=== PATIENT | female | born 1940 | race Caucasian/White ===

== ENCOUNTER 2017-05-15 18:36 | Emergency (ER) | payer MEDICARE, BC ==
[2017-05-15] MEDS ORDERED: Sodium Chloride 0.9% 1,000 ML IV ONE (18:37)
[2017-05-15 18:39] VITALS: BP 98/62
[2017-05-15] MEDS ORDERED: Nitroglycerin 0.4 MG Tab.SL ONE ×2 (18:44→19:19)
[2017-05-15] MEDS ORDERED: Amiodarone/Dextrose,Iso-Osmotic 150 MG/100 ML Premix Bag IV ONE (18:44)
[2017-05-15] MEDS ORDERED: Ketamine 500 mg/10 ML MDV ONE (18:44)
[2017-05-15] MEDS ORDERED: Amiodarone 150 MG/3 ML SDV ONE (18:44)
[2017-05-15] MEDS ORDERED: Sodium Chloride 0.9% 10 ML Syringe FLUSH PRN (18:53)
[2017-05-15 19:11] LABS: CHLORIDE,CL 102 mmol/L (98-107); SODIUM,NA 141 mmol/L (136-145)
--- NOTE | 2017-05-15 20:24 | EDM.PDOC ---
ED HPI GENERAL MEDICAL PROBLEM - General Chief Complaint: Chest Pain Stated Complaint: CHEST PAIN Time Seen by Provider: 05/15/17 18:53 Source of Information: Reports: Patient, Family History Limitations: Reports: No Limitations - History of Present Illness INITIAL COMMENTS - FREE TEXT/NARRATIVE: Patient brought in by family for complaint of central/left sided chest pain with radiation down left arm. Placed on monitor which showed VTach with rate averaging 180. Patient conversive, alert. Mild sensation SOB. Mild diaphoresis. Denied nausea. Positive history for CAD and previous ND. Was told by Cardiology in past that she is not candidate for any invasive procedures at this time. She did take three NTG at home prior to coming and noted no difference in the pain. Pain present for approximately 4 hours prior to arrival in ER. Admitted to suddenly running out of her med over the weekend and has yet not refilled them. Has not taken most of them since Saturday, two days ago. Denies any other acute recent changes in health. - Related Data Allergies Allergy/AdvReac Type Severity Reaction Status Date / Time nitrofurantoin Allergy Headache Verified 05/15/17 19:26 [From Macrobid] Home Meds: Home Meds Aspirin [Ecotrin] 325 mg PO DAILY 10/20/14 [History] Diltiazem [Cardizem CD] 180 mg PO DAILY 10/20/14 [History] Fosinopril [Monopril] 30 mg PO DAILY 10/20/14 [History] Insulin Glarg,Human.Rec.Analog [Lantus] 17 unit SUBCUT DAILY 10/20/14 [History] Nitroglycerin [Nitrostat] 0.4 mg SL Q5M 10/20/14 [History] Sertraline [Zoloft] 150 mg PO DAILY 10/20/14 [History] Cyclobenzaprine [Flexeril] 10 mg PO Q8HR PRN 10/31/14 [History] hydrOXYzine Pamoate [Vistaril] 50 mg PO Q4HR PRN 10/31/14 [History] Gabapentin [Neurontin] 300 mg PO BEDTIME 11/01/14 [History] Acetaminophen/HYDROcodone [Poulan 325-5 MG] 1 tab PO Q4H PRN #30 tablet 11/12/14 [Rx] Amoxicillin/Clavulanate K [Augmentin 875 MG/125 MG] 1 tab PO Q12HR #8 tablet [Rx] Amoxicillin/Potassium Clav [Augmentin 875-125 Tablet] 1 each PO BID #6 tablet [Rx] Diclofenac Sodium [Voltaren] 50 mg PO DAILY 07/23/15 [History] Insulin Aspart [Novolog] 7 unit SQ TIDMEALS 07/23/15 [History] predniSONE [Prednisone] 10 mg PO ASDIRECTED #20 tablet 07/23/15 [Rx] Past Medical History Cardiovascular History: Reports: CAD, Hypertension, ND, Stents Respiratory History: Reports: COPD Neurological History: Reports: CVA Psychiatric History: Reports: Depression Endocrine/Metabolic History: Reports: IDDM, Obesity/BMI 30+ - Infectious Disease History Infectious Disease History: Reports: Chicken Pox, Measles, Mumps Social & Family History - Tobacco Use Smoking Status *Q: Current Every Day Smoker Years of Tobacco use: 60 Packs/Tins Daily: 0.2 Used Tobacco, but Quit: No Second Hand Smoke Exposure: No - Alcohol Use Days Per Week of Alcohol Use: 0 - Recreational Drug Use Recreational Drug Use: No ED ROS GENERAL - Review of Systems Review Of Systems: See Below Constitutional: Reports: No Symptoms HEENT: Reports: Glasses Respiratory: Reports: Shortness of Breath. Denies: Wheezing, Pleuritic Chest Pain, Cough, Sputum, Hemoptysis Cardiovascular: Reports: Chest Pain, Dyspnea on Exertion, Lightheadedness, Palpitations. Denies: Edema, Orthopnea, Syncope GI/Abdominal: Reports: No Symptoms : Reports: No Symptoms Musculoskeletal: Reports: No Symptoms Skin: Reports: No Symptoms Neurological: Denies: Confusion, Headache, Numbness, Paresthesia, Change in Speech, Gait Disturbance Psychiatric: Reports: No Symptoms Hematologic/Lymphatic: Reports: No Symptoms Immunologic: Reports: No Symptoms ED EXAM, GENERAL - Physical Exam Exam: See Below Exam Limited By: No Limitations General Appearance: Alert, WD/WN, Mild Distress Eye Exam: Bilateral Eye: EOMI, Normal Inspection, PERRL Ears: Normal External Exam, Normal Canal Nose: Normal Inspection Throat/Mouth: Normal Inspection, Normal Lips, Normal Oropharynx, Normal Voice, No Airway Compromise Head: Atraumatic, Normocephalic Neck: Normal Inspection, Supple, Non-Tender, Full Range of Motion Respiratory/Chest: No Respiratory Distress, Lungs Clear, Normal Breath Sounds, No Accessory Muscle Use, Chest Non-Tender Cardiovascular: No Murmur, Tachycardia Peripheral Pulses: 2+: Radial (L), Radial (R), Dorsalis Pedis (L), Dorsalis Pedis (R) GI/Abdominal: Normal Bowel Sounds, Soft, Non-Tender, No Distention (Female) Exam: Deferred Rectal (Female) Exam: Deferred Back Exam: Normal Inspection Extremities: Non-Tender, Other (slightly delayed cap refill) Neurological: Alert, Oriented, Normal Cognition, No Motor/Sensory Deficits Psychiatric: Normal Affect, Normal Mood Skin Exam: Warm, Diaphoretic (mild), Pallor (mild) EKG INTERPRETATION EKG Date: 05/15/17 Time: 18:26 Rhythm: Other (V-tach) Rate (Beats/Min): 181 [place]: LAD-Left [place] Deviation P-Wave: Absent QRS: Wide Comparison: Change From Previous EKG Course - Vital Signs Last Recorded V/S: Last Vital Signs Temp Pulse 182 H 05/15/17 18:38 Resp 30 H 05/15/17 18:38 BP 98/62 05/15/17 18:38 Pulse Ox 94 L 05/15/17 18:38 - Orders/Labs/Meds Orders: Active Orders 24 hr Category Date Time Status EKG Documentation Completion [RC] ASDIRECTED Care 05/15/17 18:54 Active Chest 1V Frontal [CR] Stat Exams 05/15/17 18:54 Taken Sodium Chloride 0.9% [Saline Flush] Med 05/15/17 18:53 Active 10 ml FLUSH ASDIRECTED PRN Saline Lock Insert [OM.PC] Stat Oth 05/15/17 18:54 Ordered Medication Orders Sodium Chloride (Saline Flush) 10 ml FLUSH ASDIRECTED PRN PRN Reason: Keep Vein Open Labs: Laboratory Tests 05/15/17 05/15/17 05/15/17 Range/Units 18:40 18:40 18:40 WBC 15.9 H (4.0-10.2) K/uL RBC 4.61 (3.77-5.09) M/uL Hgb 14.1 (11.7-15.5) g/dL Hct 43.3 (34.0-46.0) % MCV 93.9 (84.0-98.0) fL MCH 30.6 (28.2-33.3) pg MCHC 32.6 (31.7-36.0) g/dL RDW 14.6 H (11.2-14.1) % Plt Count 268 (150-350) K/uL Neut % (Auto) 86.8 H (45.0-80.0) % Lymph % (Auto) 8.5 L (10.0-50.0) % [place] % (Auto) 4.3 (2.0-14.0) % Eos % (Auto) 0.2 (0.0-5.0) % Baso % (Auto) 0.2 (0.0-2.0) % Neut # (Auto) 13.84 H (1.40-7.00) K/uL Lymph # (Auto) 1.35 (0.50-3.50) K/uL [place] # (Auto) 0.69 (0.00-1.00) K/uL Eos # (Auto) 0.03 (0.00-0.50) K/uL Baso # (Auto) 0.03 (0.00-0.20) K/uL PT 10.8 (9.8-11.7) SEC INR 1.0 D-Dimer, Quantitative (0-400) ng/mL Sodium 141 (136-145) mmol/L Potassium 3.9 (3.5-5.1) mmol/L Chloride 102 (98-107) mmol/L Carbon Dioxide 23.4 (21.0-32.0) mmol/L BUN 14 (7-18) mg/dL Creatinine 1.45 H (0.51-1.17) mg/dL Est Cr Clr Drug Dosing TNP Estimated GFR (MDRD) 35 mL/min Glucose 299 H* (74-106) mg/dL Calcium 9.9 (8.5-10.1) mg/dL Magnesium 1.9 (1.8-2.4) mg/dL Total Bilirubin 0.6 (0.2-1.0) mg/dL AST 38 H (15-37) U/L ALT 18 (12-78) U/L Alkaline Phosphatase 102 (46-116) IU/L Creatine Kinase 185 (26-308) U/L Creatine Kinase Index 4.2 H (0.0-2.5) % CK-MB (CK-2) 7.80 H* (0.00-3.60) ng/mL Troponin I 0.440 H* (0.000-0.056) ng/mL NT-Pro-B Natriuret Pep 1454 H (0-125) pg/mL Total Protein 7.8 (6.4-8.2) g/dL Albumin 3.5 (3.4-5.0) g/dL 05/15/17 Range/Units 18:40 WBC (4.0-10.2) K/uL RBC (3.77-5.09) M/uL Hgb (11.7-15.5) g/dL Hct (34.0-46.0) % MCV (84.0-98.0) fL MCH (28.2-33.3) pg MCHC (31.7-36.0) g/dL RDW (11.2-14.1) % Plt Count (150-350) K/uL Neut % (Auto) (45.0-80.0) % Lymph % (Auto) (10.0-50.0) % [place] % (Auto) (2.0-14.0) % Eos % (Auto) (0.0-5.0) % Baso % (Auto) (0.0-2.0) % Neut # (Auto) (1.40-7.00) K/uL Lymph # (Auto) (0.50-3.50) K/uL [place] # (Auto) (0.00-1.00) K/uL Eos # (Auto) (0.00-0.50) K/uL Baso # (Auto) (0.00-0.20) K/uL PT (9.8-11.7) SEC INR D-Dimer, Quantitative 648 H (0-400) ng/mL Sodium (136-145) mmol/L Potassium (3.5-5.1) mmol/L Chloride (98-107) mmol/L Carbon Dioxide (21.0-32.0) mmol/L BUN (7-18) mg/dL Creatinine (0.51-1.17) mg/dL Est Cr Clr Drug Dosing Estimated GFR (MDRD) mL/min Glucose (74-106) mg/dL Calcium (8.5-10.1) mg/dL Magnesium (1.8-2.4) mg/dL Total Bilirubin (0.2-1.0) mg/dL AST (15-37) U/L ALT (12-78) U/L Alkaline Phosphatase (46-116) IU/L Creatine Kinase (26-308) U/L Creatine Kinase Index (0.0-2.5) % CK-MB (CK-2) (0.00-3.60) ng/mL Troponin I (0.000-0.056) ng/mL NT-Pro-B Natriuret Pep (0-125) pg/mL Total Protein (6.4-8.2) g/dL Albumin (3.4-5.0) g/dL Meds: Medications Generic Name Dose Route Start Last Admin Trade Name Freq PRN Reason Stop Dose Admin Sodium Chloride 10 ml 05/15/17 18:53 Saline Flush FLUSH ASDIRECTED PRN Keep Vein Open Discontinued Medications Generic Name Dose Route Start Last Admin Trade Name Freq PRN Reason Stop Dose Admin Ketamine HCl Confirm 05/15/17 18:44 Ketalar Administered 05/15/17 18:45 Dose 500 mg .ROUTE .STK-MED ONE Nitroglycerin Confirm 05/15/17 19:19 Nitrostat Administered 05/15/17 19:20 Dose 0.4 mg .ROUTE .STK-MED ONE - Radiology Interpretation Free Text/Narrative:: Chest xray overall no significant change when compare to previous films. - Re-Assessments/Exams Free Text/Narrative Re-Assessment/Exam: 05/15/17 20:30 IV access obtained. Patient's BP 98/62 RR 30, O2 sats 94% Call placed to [place] [facility]. Recommendation was to give Amiodarone IV. Pads were placed in case cardioversion required. Second IV site established. Patient noted to become less responsive to voice/stimulation. Continued to have spontaneous respirations. It was decided to cardiovert her with synchronized 200J shock when it was noted that she became unresponsive. This resulted in immediate conversion to sinus rhythm. Stable BP/respiratory rate noted with recheck. Patient said that essentially most of her original complaint had resolved. Recheck of EKG showed ST depression in anterolateral leads with rate of 60. Also prolonged QT. [place] made arrangements with [facility] to have patient transferred by air ambulance for continued care. Dr.Luger lexi SANDERS. lab abnormalities included: WBC elevated at 15.9 Glucose 299 Cr 1.45 CKMB 7.8 Troponin 0.440 Pro BNP 1454 Suspect acute ND in conjunction with episode of VTach. Amiodarone drip placed prior to transfer. Additional NTG SL given as patient continued to have complaint of mild chest pain ("3"). This improved pain. Free Text/Narrative Re-Assessment/Exam: 05/15/17 20:42 Patient remained stable and free of worsening symptoms for remainder of stay prior to transfer. Departure - Departure Time of Disposition: 20:00 Disposition: DC/Tfer to [facility] 02 Reason for Transfer *Q: Other (requires CCU care/ Cardiology) Condition: Fair Clinical Impression: Ventricular tachycardia, Acute myocardial ischemia Referrals: Howard Blue [employer] [Primary Care Provider] - Forms: ED Department Discharge - My Orders Last 24 Hours: My Active Orders 05/15/17 18:53 Sodium Chloride 0.9% [Saline Flush] 10 ml FLUSH ASDIRECTED PRN 05/15/17 18:54 EKG Documentation Completion [RC] ASDIRECTED Chest 1V Frontal [CR] Stat Saline Lock Insert [OM.PC] Stat - Assessment/Plan Last 24 Hours: My Active Orders 05/15/17 18:53 Sodium Chloride 0.9% [Saline Flush] 10 ml FLUSH ASDIRECTED PRN 05/15/17 18:54 EKG Documentation Completion [RC] ASDIRECTED Chest 1V Frontal [CR] Stat Saline Lock Insert [OM.PC] Stat
== END 2017-05-15 20:14 ==
LOC: LL.ED 18:36
DX: I51.3 Intracardiac thrombosis, not elsewhere classified (principal); I47.2 Ventricular tachycardia; I10 Essential (primary) hypertension; I25.2 Old myocardial infarction; I25.10 Atherosclerotic heart disease of native coronary artery without angina pectoris; R06.02 Shortness of breath; F32.9 Major depressive disorder, single episode, unspecified; E11.9 Type 2 diabetes mellitus without complications; E66.9 Obesity, unspecified; F17.210 Nicotine dependence, cigarettes, uncomplicated; Z86.73 Personal history of transient ischemic attack (TIA), and cerebral infarction without residual deficits; Z79.4 Long term (current) use of insulin; Z79.899 Other long term (current) drug therapy; Z79.82 Long term (current) use of aspirin; Z88.8 Allergy status to other drugs, medicaments and biological substances
CPT/HCPCS: 36000; 36415; 71010; 80053; 82550; 82553; 83735; 83880; 84484; 85025; 85379; 85610; 92960; 93005; 93010; 96365; 96376; 99285; 99291; 99292; A9270; J0282; J7030

== ENCOUNTER 2018-08-12 16:21 | Inpatient (IN) | payer MEDICARE, BC ==
[2018-08-12] MEDS ORDERED: Lactated Ringers 1,000 ML IV ONE (16:31)
[2018-08-12] MEDS ORDERED: Ondansetron 4 MG/2 ML SDV IVPUSH ONE (16:31)
[2018-08-12] MEDS ORDERED: Pantoprazole 40 MG Vial IVPUSH ONE (16:31)
[2018-08-12] MEDS ORDERED: Famotidine 20 MG/2 ML SDV IVPUSH ONE (16:31)
--- NOTE | 2018-08-12 16:31 | EDM.PDOC ---
ED HPI GENERAL MEDICAL PROBLEM - General Chief Complaint: General Stated Complaint: n/v/d weakness Time Seen by Provider: 08/12/18 16:21 Source of Information: Reports: Patient, Family (Daughter), Old Records ([facility] chart/EMR), Other ([facility] EMR) History Limitations: Reports: No Limitations - History of Present Illness INITIAL COMMENTS - FREE TEXT/NARRATIVE: Patient was initially evaluated by her regular provider[facility], who brought the patient to the emergency room for further evaluation. Blood work was ordered in the clinic as below with EKG showing a newly diagnosed atrial fibrillation with some lateral wall cardiac ischemia. No history of anginal type symptoms, however. The patient denies any chest pain/pressure, heart flutter, orthostasis, diaphoresis, paresthesias, recent decreased exercise tolerance, or any other anginal-type symptoms, although she has had some nonspecific orthopnea and borderline fatigue secondary to her abdominal complaints as below. She has a one-week history of intermittent nausea and nonspecific generalized abdominal cramping with no known exposure to infection, food poisoning, etc. She did receive an influenza booster this season. Patient has been taking lots of Pepto-Bismol with secondary dark stools. No recent history of heartburn, emesis/hematemesis, diarrhea, melena, gross hematochezia, or any food intolerance, including fatty foods, etc.., although she has had some moderate anorexia are in the last week. She has not taken either her insulin or blood pressure medications for the last 4 days. She denies any gross hematuria, colic, current UTI symptoms. The patient also denies any recent fever, cough, wheezing, dyspnea, etc... The patient is also not been taking her Accu-Cheks. Onset: Gradual Duration: Week(s): (As above), Constant, Getting Worse Location: Reports: Abdomen (Nonspecific abdominal). Denies: Head, Face, Neck, Chest, Back, Pelvis, Upper Extremity, Left, Upper Extremity, Right, Radiates to Quality: Reports: Ache, Same as Previous Episode Severity: Moderate Improves with: Reports: None Worsens with: Reports: None Context: Reports: Other (As above). Denies: Sick Contact, Trauma Associated Symptoms: Reports: Loss of Appetite, Nausea/Vomiting (No emesis), Weakness (Secondary to current illness). 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) (As above) - Related Data Allergies Allergy/AdvReac Type Severity Reaction Status Date / Time nitrofurantoin Allergy Headache Verified 07/08/18 19:24 [From Macrobid] Home Meds: Home Meds Fosinopril [Monopril] 40 mg PO DAILY 10/20/14 [History] Insulin Glarg,Human.Rec.Analog [Lantus] 17 unit SUBCUT DAILY 10/20/14 [History] Nitroglycerin [Nitrostat] 0.4 mg SL Q5M 10/20/14 [History] Sertraline [Zoloft] 150 mg PO DAILY 10/20/14 [History] Gabapentin [Neurontin] 300 mg PO BID 11/01/14 [History] Insulin Aspart [Novolog] 7 unit SQ TIDMEALS 07/23/15 [History] Aspirin 81 mg PO DAILY 08/12/18 [History] Clopidogrel Bisulfate [Clopidogrel] 75 mg PO DAILY 08/12/18 [History] Metoprolol Succinate 50 mg PO DAILY 08/12/18 [History] amLODIPine Besylate [Amlodipine Besylate] 10 mg PO DAILY 08/12/18 [History] atorvaSTATin [Lipitor] 20 mg PO BEDTIME 08/12/18 [History] buPROPion [buPROPion XL] 150 mg PO DAILY 08/12/18 [History] Past Medical History HEENT History: Reports: Cataract, Impaired Vision, Macular Degeneration, Other ( See Below). Denies: Allergic Rhinitis, Glaucoma, Hard of Hearing, Retinal Detachment Other HEENT History: No Diabetic retinopathy. Patient does have intraocular injections bilaterally for her macular degeneration. She does wear glasses. Cardiovascular History: Reports: Arrhythmia, Blood Clots/VTE/DVT, CAD, Cardiomyopathy, Heart Failure, Heart Murmur, High Cholesterol, Hypertension, KY , PTCA, PVD, Stents, Syncope, Other (See Below). Denies: Afib, Aneurysm, Bypass , Pacemaker Other Cardiovascular History: Ventricular tachycardia requiring both electrocardioversion and amiodarone infusion on 05/15/17. Dyslipidemia. Known multivessel coronary artery disease with cardiac procedures as below. History of recurrent KY 4 last in April 2017 with initial KY including on 08/10/1999 with stent placement and subsequent KY 07/03/2008 requiring stent placement. Near -syncope on 10/31/14 with possible KY at that time. Grade 2 diastolic dysfunction with history of recurrent CHF. PVCs and trigeminy. Moderate left ventricular hypertrophy, severe left atrial enlargement, moderate mitral valve insufficiency , and mild pulmonary hypertension by echocardiogram. DVT of the left leg in the 1970s. Respiratory History: Reports: Bronchitis, Recurrent, COPD, Intubation, Previous , Pneumonia, Recurrent, Sleep Apnea, Other (See Below). Denies: Asthma, Intubation, Difficult, PE, Pneumothorax, TB Other Respiratory History: Moderate obstructive sleep apnea with patient longer using her CPAP. Gastrointestinal History: Reports: Diverticulosis, GERD, Other (See Below) Other Gastrointestinal History: Common bile duct dilatation obstruction and calcification with secondary LFTs elevation and hyperbilirubinemia on 07/09/18 requiring procedures as below. Status post cholecystectomy. Moderate diverticulosis. Fatty liver. Genitourinary History: Reports: Acute Renal Failure, Chronic Renal Insuffiency, Diabetic Nephropathy, Renal Calculus, UTI, Recurrent, Other (See Below) Other Genitourinary History: Nonsymptomatic nonobstructive right renal/pelvic nephrolithiasis with small benign renal cysts. Grade 3 renal insufficiency and diabetic nephropathy with left renal atrophy. 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 SABs 2 in first trimester not requiring D&C Musculoskeletal History: Reports: Arthritis, Back Pain, Chronic, Fracture, Gout , Osteoarthritis, Osteoporosis, Other (See Below). Denies: Amputation, RA, SLE Other Musculoskeletal History: L4 acute vertebral body fracture at site of L4 screw fixation on 09/28/10. Hx of rib fx.- Side known. Right hand triquetrum chip fracture. L4-L5 spinal stenosis with surgery as below. Neurological History: Reports: CVA, Headaches, Chronic, Migraines, Neuropathy, Diabetic, Neuropathy, Peripheral, Other (See Below). 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 Carotid occlusive disease with moderately narrow left posterior cerebral artery origins with tortuous carotid siphons bilaterally. Cerebral atrophy. Psychiatric History: Reports: Anxiety, Depression Endocrine/Metabolic History: Reports: IDDM, Obesity/BMI 30+, Vitamin D Deficiency, Other (See Below) Other Endocrine/Metabolic History: Hypomagnesemia. Hyperalbuminemia. Hematologic History: Reports: None. Denies: Anemia, Blood Transfusion(s), Iron Deficiency Immunologic History: Reports: None. Denies: AIDS, HIV, SLE Oncologic (Cancer) History: Reports: None. Denies: Basal Cell Carcinoma, Breast , Cervix, Colon, Hodgkin's Lymphoma, Leukemia, Lymphoma, Malignant Melanoma, Non -Hodgkin's Lymphoma, Ovarian, Squamous Cell Carcinoma, Uterine Dermatologic History: Reports: None. Denies: Eczema, Psoriasis - Infectious Disease History Infectious Disease History: Reports: Chicken Pox, Measles, Mumps. Denies: C- Difficile, Meningitis, Mononucleosis, MRSA, Pertussis (Whooping Cough), Rheumatic Fever, Rubella, Scarlet Fever, Shingles, TB, VRE - Past Surgical History Head Surgeries/Procedures: Reports: None HEENT Surgical History: Reports: Cataract Surgery, Oral Surgery, Other (See Below). Denies: Adenoidectomy, Detached Retina, Eye Surgery, Laser Surgery, LASIK, Myringotomy w Tube(s), Naso-Sinus Surgery, Tonsillectomy Other HEENT Surgeries/Procedures: Complete teeth extraction with complete dentures uppers and lowers. Bilateral cataract surgery 2013. Cardiovascular Surgical History: Reports: Coronary Artery Stent, Percutaneous Transluminal Angioplasty, Other (See Below). Denies: Aneurysm, Coronary Artery Bypass Other Cardiovascular Surgeries/Procedures: PTCA/stent of left circumflex artery on 08/10/1999 with subsequent multiple PTCA attempts which were not successful by patient and family history. Respiratory Surgical History: Reports: None. Denies: Thoracentesis GI Surgical History: Reports: Cholecystectomy, Colonoscopy, Other (See Below). Denies: Appendectomy, EGD, Hernia, Abdominal, Hernia, Inguinal, Hernia Repair/ Other, Polypectomy Other GI Surgeries/Procedures: ERCP with sphincterectomy on 07/14/18 with previous MRI of the abdomen and ERCP on. Open Cholecystectomy at age 31. Appendectomy at age 10. Last colonoscopy on 03/08/2001. Female Surgical History: Reports: Hysterectomy, Salpingo-Oophorectomy, Tubal Ligation, Other (See Below). Denies: Breast Biopsy, D&C Other Female Surgeries/Procedures: Complete hysterectomy with bilateral salpingo-oophorectomy secondary to dysfunctional uterine bleeding and uterine fibroids in the 1980s. Bilateral tubal ligation in her 20s. Endocrine Surgical History: Reports: None. Denies: Thyroid Biopsy Neurological Surgical History: Reports: Laminectomy, Lumbar Spine, Spinal Fusion , Other (See Below). Denies: C-Spine, Discectomy, Sacral Spine, Thoracic Spine , Vertebroplasty Other Neurological Surgeries/Procedures: L4-5 laminectomy with spinal fusion on 06/15/10. Musculoskeletal Surgical History: Reports: Carpal Tunnel, Other (See Below). Denies: Arthroscopic Procedure, Ganglion Cyst, Hip Replacement, Joint Replacement, ORIF, Shoulder Surgery Other Musculoskeletal Surgeries/Procedures:: Bilateral carpal tunnel release in her 40s. Oncologic Surgical History: Reports: None. Denies: Biopsy of Breast Dermatological Surgical History: Reports: None - Past Imaging History Past Imaging History: Reports: Angiography (Heart catheterization on 10/22/14 with multivessel disease including decreased ejection fraction of 4045 percent with previous heart catheterization on 07/03/08 and at time of her KY/stent placement on 08/10/1999), Bone Scan (Lumbar spine on 07/03/10.), Cardiac Echo ( Last echocardiogram on 08/31/17 with improved ejection fraction of 5055 percent with findings as above. Previous echocardiograms on 04/28/14, and 05/21/10.), Carotid US (11/02/14 and 10/19/08.), CAT Scan (Head CT on 10/31/14 and 07/01/10. CT of the abdomen and pelvis on 01/25/11. CT of the lumbar spine on 09/28/10 and with lumbar myelogram on 09/28/10.), DEXA Scan (02/24/10), EEG (01/20/15), Mammogram (Last on 05/21/11), MRA (MRA/MRI of the brain on 11/08/14 with findings as above.), MRI (MR of the abdomen with concomitant ERCP on 07/09/18. Lumbar spine on 02/21/11 and 06/30/10. Left hip on 09/08/10. MRI of the brain and thoracic spine on 07/01/10.), PFT (12/08/14), Sleep Study (06/06/17, 06/30/15, 05/26, 04/05/15 and 01/24/15.), Stress Testing (Cardiolite stress test on on and 05/30/07. Low level cardiac stress test on 12/28/14, 06/11/17, and 07/09/08. ), Ultrasound (Abdominal ultrasound on 07/09/18. Renal ultrasound on 08/20/12. Pelvic ultrasound on 01/18/11.), Other (See Below) (Nerve Conduction studies and EMGs on 09/10/10.) Social & Family History - Family History HEENT: Reports: None. Denies: Allergic Rhinitis, Glaucoma, Macular Degeneration , Retinal Detachment Cardiac: Reports: Arrhythmia, CAD, Heart Murmur, KY, Other (See Below). Denies : Aneurysm, Blood Clots/VTE/DVT, High Cholesterol, Hypertension, Syncope Other Cardiac Family History: Mother with fatal KY at age 72 with previous valve replacement. Mother also from an KY in her 70s with her mother also requiring valve replacement. 2 brothers with unknown type of cardiac arrhythmia. Respiratory: Reports: None. Denies: Asthma, COPD, PE, Pneumothorax, Sleep Apnea GI: Reports: Colon Polyps. Denies: Celiac Disease, Cholelithiasis, Diverticulosis, GERD, GI bleed, Inflammatory Bowel Disease, Irritable Bowel Syndrome Other GI Family History: Brother with colon cancer as below : Reports: None. Denies: Renal Calculus, Renal Disease/Insufficiency OBGYN: Reports: None. Denies: Dysfunctional uterine bleeding, Endometriosis, Fibroids, Recurrent Spontaneous Musculoskeletal: Reports: None. Denies: Arthritis, Gout, RA, SLE Neurological: Reports: CVA, Parkinson's, Other (See Below). Denies: Alzheimers Disease, Cerebral Aneurysms, Dementia, Migraines, Seizure, TIA Other Neurological Family History: Mother with Parkinson's disease. Maternal grandfather with fatal CVA and his 90s. Psychiatric: Reports: None. Denies: Abuse, Victim of, ADD, ADHD, Anxiety, Depression, Psych Hospitalization(s), PTSD, Suicide Attempt Endocrine/Metabolic: Reports: Diabetes, type II, IDDM, Other (See Below). Denies: Diabetes, Gestational, Diabetes, Type I, Diabetes Mellitus, Type 3c, Hypothyroidism Other Endocrine/Metabolic Family History: Strong history of diabetes including IDDM in mother, maternal grandmother, and paternal aunt with another maternal aunt having diabetes treated with oral medications. Hematologic: Reports: None. Denies: Anemia, SLE Immunologic: Reports: None. Denies: AIDS, HIV, SLE Dermatologic: Reports: None. Denies: Eczema, Psoriasis Oncologic: Reports: Breast, Colon, Hodgkin's Lymphoma, Ovarian, Other (See Below ). Denies: Brain, Cervix, Leukemia, Metastatic, Non-Hodgkin's Lymphoma, Skin, Uterine Other Oncologic Family History: Brother with colon cancer in his 60s. Maternal grandmother with ovarian and breast cancer. 2 maternal aunts with breast cancer one in her 40s the other in her 60s. Mother with Hodgkin's disease. - Tobacco Use Smoking Status *Q: Current Every Day Smoker Tobacco Use Within Last Twelve Months: Cigarettes Years of Tobacco use: 63 Packs/Tins Daily: 0.2 Packs/Tins Daily Comment: Started smoking at age 14 with previous use of 1/21 pack per day. Used Tobacco, but Quit: No Smoking Cessation Information Provided To Patient: Yes (At discharge) Second Hand Smoke Exposure: No Second Hand Smoke Education Provided: No - Caffeine Use Caffeine Use: Reports: Coffee (4 cups per day), Tea (2 cups per day). Denies: Energy Drinks, Soda - Alcohol Use Alcohol Use History: Yes Days Per Week of Alcohol Use: 0 Number of Drinks Per Day: 2 Total Drinks Per Week: 0 Total Drinks Per Week Comment: Usually for holidays, No previous DWIs, problems with alcohol abuse, etc. 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 ED EXAM, GENERAL - Physical Exam Exam: See Below Exam Limited By: No Limitations General Appearance: Alert, WD/WN, No Apparent Distress, Anxious (Mild) Eye Exam: Bilateral Eye: EOMI, Normal Inspection (No nystagmus), PERRL, Other ( Stable by history moderate right upper lid ptosis) Ears: Normal External Exam, Normal Canal, Hearing Grossly Normal, Normal TMs Nose: Normal Inspection, Normal Mucosa, No Blood Throat/Mouth: Normal Lips, Normal Gums, Normal Voice, No Airway Compromise. No : Normal Teeth (Complete dentures uppers and lowers), Normal Oropharynx (Dry oral mucosamild), Dysphagia, Perioral Cyanosis Head: Atraumatic, Normocephalic, Other (Stable by history right facial hemiparesis). No: Facial Swelling, Facial Tenderness, Sinus Tenderness Neck: Supple, Non-Tender, Full Range of Motion, Carotid Bruit (Mild bilateral carotid bruits versus transmitted heart sounds). No: Lymphadenopathy (L), Lymphadenopathy (R), Thyromegaly Respiratory/Chest: No Respiratory Distress, No Accessory Muscle Use, Chest Non- Tender, Rales (Mild diffuse bilateral basilar rales). No: Pleural Rub, Retractions Cardiovascular: Normal Peripheral Pulses, No Edema, No Gallop, No JVD, No Rub, Systolic Murmur (1/6 DEBBIE of the mitral and aortic sounds), Irregularly Irregular. No: Gallop/S3, Gallop/S4, Friction Rub Peripheral Pulses: 2+: Radial (L), Radial (R), Dorsalis Pedis (L), Dorsalis Pedis (R) GI/Abdominal: Normal Bowel Sounds, Soft, Non-Tender, No Organomegaly, No Distention, No Abnormal Bruit, No Mass, Pelvis Stable. No: Guarding (Female) Exam: Deferred Rectal (Female) Exam: Deferred Back Exam: Normal Inspection, Full Range of Motion. No: CVA Tenderness (L), CVA Tenderness (R), Muscle Spasm Extremities: Normal Inspection, Normal Range of Motion, Non-Tender, No Pedal Edema, Normal Capillary Refill. No: Froilan's Sign Neurological: Alert, Oriented, CN II-XII Intact, Normal Cognition, Normal Gait, Normal Reflexes (Negative Babinski's), No Motor/Sensory Deficits, Other (Left- sided facial Arango's palsy as abovestable) Psychiatric: Anxious (Mild), Depressed Mood (Borderline) Skin Exam: Warm, Dry, Intact, Normal Color, No Rash. No: Diaphoretic, Wound/ Incision Lymphatic: No Adenopathy EKG INTERPRETATION EKG Date: 08/12/18 Time: 15:57 Rhythm: A-Fib (New) Rate (Beats/Min): 111 Jermyn: Normal (Left cardiac axis) P-Wave: Variable QRS: RBBB (QRS interval of 0.12 seconds representing repolarization changes versus incomplete bundle branch block/bifascicular bundle branch block) ST-T: Other (Progressive new horizontal [address] depressions in leads V4 through V6 with stable nonspecific ST changes including mild T-wave inversion in leads 1 and aVL) QT: Normal AL/PQ Interval: Variable. Extreme poor R-wave progression in the anterior leads. Left ventricular hypertrophy by voltage Comparison: Change From Previous EKG (As above since last EKG on 09/16/17 with mild sinus bradycardia at time) EKG Interpretation Comments: 1. New lateral wall cardiac ischemia 2. New atrial fibrillation with mild tachycardia 3. Ventricular hypertrophy by voltage 4. Incomplete bifascicular bundle branch block Course - Vital Signs Last Recorded V/S: Last Vital Signs Temp 36.7 C 08/12/18 16:22 Pulse 90 08/12/18 19:15 Resp 20 08/12/18 19:15 BP 136/88 08/12/18 19:15 Pulse Ox 93 L 08/12/18 19:15 Vital Signs - 24 hr 08/12/18 08/12/18 08/12/18 16:22 16:54 17:30 Temperature [ 36.7 C Temporal] Pulse, 96 99 94 Peripheral [ Right Pulse Oximetry] Respiratory 16 18 16 Rate Blood Pressure 156/94 H 149/72 H 157/105 H [Right Upper Arm] O2 Sat by Pulse 96 96 96 Oximetry 08/12/18 08/12/18 08/12/18 17:40 18:10 18:35 Temperature [ Temporal] Pulse, 87 90 86 Peripheral [ Right Pulse Oximetry] Respiratory 17 18 18 Rate Blood Pressure 177/84 H 156/73 H 131/78 [Right Upper Arm] O2 Sat by Pulse 94 L 95 97 Oximetry 08/12/18 19:15 Temperature [ Temporal] Pulse, 90 Peripheral [ Right Pulse Oximetry] Respiratory 20 Rate Blood Pressure 136/88 [Right Upper Arm] O2 Sat by Pulse 93 L Oximetry - Orders/Labs/Meds Orders: Active Orders 24 hr Category Date Time Status Peripheral IV Care [RC] . DIRECTED Care 08/12/18 16:31 Active Nothing Per Oral Diet [DIET] Diet 08/12/18 Breakfast Active Abdomen Series w Chest 1V [CR] Stat Exams 08/12/18 16:31 Taken CULTURE STREP A CONFIRMATION [RM] Stat Lab 08/12/18 16:30 Results CULTURE URINE [] Stat Lab 08/12/18 18:00 Received OCCULT BLOOD DIAGNOSTIC [OP] Stat Lab 08/12/18 16:31 Ordered STREP SCRN A RAPID W CULT CONF [RM] Stat Lab 08/12/18 16:30 Results Sodium Chloride 0.9% [Saline Flush] Med 08/12/18 16:31 Active 10 ml FLUSH ASDIRECTED PRN Obtain Past Medical Record [OM.PC] Urgent Oth 08/12/18 16:31 Active Peripheral IV Insertion Adult [OM.PC] Stat Oth 08/12/18 16:31 Ordered Resuscitation Status Stat Resus Stat 08/12/18 16:31 Ordered Medication Orders Sodium Chloride (Saline Flush) 10 ml FLUSH ASDIRECTED PRN PRN Reason: Keep Vein Open Last Admin: 08/12/18 17:03 Dose: 10 ml Labs: Laboratory Tests 08/12/18 08/12/18 08/12/18 Range/Units 15:55 15:55 15:55 PT (9.5-12.0) SEC INR APTT (21.0-31.3) SEC D-Dimer, Quantitative (0-400) ng/mL Sodium Cancelled Potassium Cancelled Chloride Cancelled Carbon Dioxide Cancelled BUN Cancelled Creatinine Cancelled Est Cr Clr Drug Dosing Cancelled Estimated GFR (MDRD) Cancelled Glucose Cancelled Hemoglobin A1c (4.3-5.7) % Uric Acid 8.1 H (2.6-7.2) mg/dL Calcium Cancelled Magnesium 1.7 L (1.8-2.4) mg/dL Total Bilirubin Cancelled AST Cancelled ALT Cancelled Alkaline Phosphatase Cancelled Creatine Kinase 50 (26-308) U/L Creatine Kinase Index 3.8 H (0.0-2.5) % CK-MB (CK-2) 1.90 (0.00-3.60) ng/mL Troponin I 0.019 (0.000-0.056) ng/mL NT-Pro-B Natriuret Pep 3557 H (0-125) pg/mL Total Protein Cancelled Albumin Cancelled Amylase 36 (25-115) U/L Lipase 132 (73-393) U/L Specimen Type Urine Color Urine Appearance Urine pH (5.0-9.0) Ur Specific Thurman (1.005-1.030) Urine Protein (NEGATIVE) mg/dL Urine Glucose (UA) (NEGATIVE) mg/dL Urine Ketones (NEGATIVE) mg/dL Urine Occult Blood (NEGATIVE) Urine Nitrite (NEGATIVE) Urine Bilirubin (NEGATIVE) Urine Urobilinogen (0.2-1.0) E.U./dL Ur Leukocyte Esterase (NEGATIVE) Urine RBC /HPF Urine WBC /HPF Ur Epithelial Cells /LPF Urine Bacteria (NONE TO FEW) /HPF Hyaline Casts (NEGATIVE) /LPF Ketones Negative 08/12/18 08/12/18 08/12/18 Range/Units 15:55 15:55 16:30 PT 12.0 (9.5-12.0) SEC INR 1.1 APTT 24.8 (21.0-31.3) SEC D-Dimer, Quantitative 668 H (0-400) ng/mL Sodium Potassium Chloride Carbon Dioxide BUN Creatinine Est Cr Clr Drug Dosing Estimated GFR (MDRD) Glucose Hemoglobin A1c 7.6 H (4.3-5.7) % Uric Acid (2.6-7.2) mg/dL Calcium Magnesium (1.8-2.4) mg/dL Total Bilirubin AST ALT Alkaline Phosphatase Creatine Kinase (26-308) U/L Creatine Kinase Index (0.0-2.5) % CK-MB (CK-2) (0.00-3.60) ng/mL Troponin I (0.000-0.056) ng/mL NT-Pro-B Natriuret Pep (0-125) pg/mL Total Protein Albumin Amylase (25-115) U/L Lipase (73-393) U/L Specimen Type Urine Color Urine Appearance Urine pH (5.0-9.0) Ur Specific Thurman (1.005-1.030) Urine Protein (NEGATIVE) mg/dL Urine Glucose (UA) (NEGATIVE) mg/dL Urine Ketones (NEGATIVE) mg/dL Urine Occult Blood (NEGATIVE) Urine Nitrite (NEGATIVE) Urine Bilirubin (NEGATIVE) Urine Urobilinogen (0.2-1.0) E.U./dL Ur Leukocyte Esterase (NEGATIVE) Urine RBC /HPF Urine WBC /HPF Ur Epithelial Cells /LPF Urine Bacteria (NONE TO FEW) /HPF Hyaline Casts (NEGATIVE) /LPF Ketones 08/12/18 Range/Units 18:00 PT (9.5-12.0) SEC INR APTT (21.0-31.3) SEC D-Dimer, Quantitative (0-400) ng/mL Sodium Potassium Chloride Carbon Dioxide BUN Creatinine Est Cr Clr Drug Dosing Estimated GFR (MDRD) Glucose Hemoglobin A1c (4.3-5.7) % Uric Acid (2.6-7.2) mg/dL Calcium Magnesium (1.8-2.4) mg/dL Total Bilirubin AST ALT Alkaline Phosphatase Creatine Kinase (26-308) U/L Creatine Kinase Index (0.0-2.5) % CK-MB (CK-2) (0.00-3.60) ng/mL Troponin I (0.000-0.056) ng/mL NT-Pro-B Natriuret Pep (0-125) pg/mL Total Protein Albumin Amylase (25-115) U/L Lipase (73-393) U/L Specimen Type Urinvoid Urine Color Dark yellow Urine Appearance Slightly cloudy Urine pH 5.5 (5.0-9.0) Ur Specific Thurman 1.025 (1.005-1.030) Urine Protein 100 H (NEGATIVE) mg/dL Urine Glucose (UA) Negative (NEGATIVE) mg/dL Urine Ketones Trace H (NEGATIVE) mg/dL Urine Occult Blood Negative (NEGATIVE) Urine Nitrite Negative (NEGATIVE) Urine Bilirubin Small H (NEGATIVE) Urine Urobilinogen 1.0 (0.2-1.0) E.U./dL Ur Leukocyte Esterase Negative (NEGATIVE) Urine RBC 5-10 H /HPF Urine WBC 5-10 H /HPF Ur Epithelial Cells Moderate H /LPF Urine Bacteria Few (NONE TO FEW) /HPF Hyaline Casts Rare H (NEGATIVE) /LPF Ketones Urine specimen set up for culture and sensitivity Note CBC, comprehensive metabolic panel, and lactic acid level ordered by Mary [facility] prior to emergency room evaluation with normal lactic acid level, potassium 3.3, random glucose 188, BUN 27, creatinine 1.55, calcium 10.4, Felisa PVCs 13.8 with hemoglobin of 14.6, platelets 241 and elevated neutrophils of 88.2%. Meds: Medications Generic Name Dose Route Start Last Admin Trade Name Freq PRN Reason Stop Dose Admin Sodium Chloride 10 ml 08/12/18 16:31 08/12/18 17:03 Saline Flush FLUSH 10 ml ASDIRECTED PRN Administration Keep Vein Open Discontinued Medications Generic Name Dose Route Start Last Admin Trade Name Freq PRN Reason Stop Dose Admin Famotidine 40 mg 08/12/18 16:31 08/12/18 16:46 Pepcid IVPUSH 08/12/18 16:32 40 mg ONETIME ONE Administration Lactated Ringer's 1,000 mls @ 999 mls/hr 08/12/18 16:31 08/12/18 16:45 Ringers, Lactated IV 08/12/18 17:31 999 mls/hr .BOLUS ONE Administration Metoclopramide HCl 10 mg 08/12/18 17:41 08/12/18 17:45 Reglan IVPUSH 08/12/18 17:42 10 mg ONETIME ONE Administration Ondansetron HCl 4 mg 08/12/18 16:31 08/12/18 16:46 Zofran IVPUSH 08/12/18 16:32 4 mg ONETIME ONE Administration Pantoprazole Sodium 40 mg 08/12/18 16:31 08/12/18 16:46 Protonix Iv IVPUSH 08/12/18 16:32 40 mg ONETIME ONE Administration - Radiology Interpretation Free Text/Narrative:: monitoring manager shows atrial fibrillation with heart rate in the 90s to 110s with occasional uniform PVCs Abdominal x-ray shows mild to moderate diffuse stool with nonspecific bowel gaseous pattern. Moderate COPD changes with probable pulmonary hypertension and centralized CHF. No pneumothorax. No significant pulmonary infiltrates, free air , fluid levels, ileus, or obstruction. Evidence of upper abdominal stents? Moderate osteoarthritic and osteoporotic changes with mild scoliosis and status post L4-L5 fusion. Moderate poor inspiratory film with mild to moderate cardiomegaly and moderate aortic valve calcification. Departure - Departure Time of Disposition: 19:45 Disposition: Admitted As Inpatient 67 Condition: Fair Clinical Impression: Dyslipidemia, IDDM (insulin dependent diabetes mellitus), Hyperuricemia, Hypokalemia, Hypercalcemia, Chronic renal insufficiency, stage III (moderate), Dehydration, D-dimer, elevated Atrial fibrillation Qualifiers: Atrial fibrillation type: paroxysmal Qualified Code(s): I48.0 - Paroxysmal atrial fibrillation Coronary artery disease Qualifiers: Coronary Disease-Associated Artery/Lesion type: [place] artery [place] vs. transplanted heart: [place] heart Associated angina: without angina Qualified Code(s): I25.10 - Atherosclerotic heart disease of [place] coronary artery without angina pectoris CHF (congestive heart failure) Qualifiers: Heart failure type: combined systolic and diastolic Heart failure chronicity: acute on chronic Qualified Code(s): I50.43 - Acute on chronic combined systolic (congestive) and diastolic (congestive) heart failure Abdominal pain Qualifiers: Abdominal location: generalized Qualified Code(s): R10.84 - Generalized abdominal pain UTI (urinary tract infection) Qualifiers: Urinary tract infection type: acute cystitis Hematuria presence: without hematuria Qualified Code(s): N30.00 - Acute cystitis without hematuria - Discharge Information *PRESCRIPTION DRUG MONITORING PROGRAM REVIEWED*: Not Applicable *COPY OF PRESCRIPTION DRUG MONITORING REPORT IN PATIENT DOM: Not Applicable ( See plan) - Problem List & Annotations (1) Atrial fibrillation SNOMED Code(s): 75106325 Code(s): I48.91 - UNSPECIFIED ATRIAL FIBRILLATION Status: Acute Priority : High Current Visit: Yes Onset Date: 08/12/18 Annotation/Comment:: Note no Chest pain or anginal complaints prior to admission. Initiate standard rule out [place] orders, however. Note chest pain protocol not initiated secondary to absence of anginal complaints.. Subcutaneous Lovenox to be given at cardiac dose for now. Consider initiation of Coumadin therapy in the a.m. with consideration of repeat echocardiogram on an outpatient basis, however note comfort care as below. Note previous history of ventricular tachycardia requiring cardioversion as above. Also previous known history of PVCs. Adjust medications further during this hospitalization depending on her clinical course. Qualifiers: Atrial fibrillation type: paroxysmal Qualified Code(s): I48.0 - Paroxysmal atrial fibrillation (2) Abdominal pain SNOMED Code(s): 21456495 Code(s): R10.9 - UNSPECIFIED ABDOMINAL PAIN Status: Acute Priority: High Current Visit: Yes Annotation/Comment:: Abdominal Pain and nausea resolved at time of admission. Possibly secondary to UTI versus viral gastroenteritis. Patient did receive her influenza booster this season. Note high-dose IV Pepcid , IV Protonix, and IV fluids given during emergency room care. Both IV Zofran and IV Reglan were needed to control her nausea, however. No further IV fluids secondary to her CHF as below. [place] fluid restricted, etc. diet. Abdominal assessments with vitals. Qualifiers: Abdominal location: generalized Qualified Code(s): R10.84 - Generalized abdominal pain (3) CHF (congestive heart failure) SNOMED Code(s): 14884646 Code(s): I50.9 - HEART FAILURE, UNSPECIFIED Status: Acute Priority: High Current Visit: Yes Onset Date: 08/12/18 Annotation/Comment:: Careful diuresis secondary to recent dehydration. Repeat Echocardiogram on an outpatient basis as above. Qualifiers: Heart failure type: combined systolic and diastolic Heart failure chronicity: acute on chronic Qualified Code(s): I50.43 - Acute on chronic combined systolic (congestive) and diastolic (congestive) heart failure (4) Chronic renal insufficiency, stage III (moderate) SNOMED Code(s): 465188604 Code(s): N18.3 - CHRONIC KIDNEY DISEASE, STAGE 3 (MODERATE) Status: Chronic Priority: Medium Current Visit: Yes Annotation/Comment:: Known diabetic nephropathy. Continue to observe closely secondary to IV Lasix therapy. 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 Standard rule out [place] orders as above. Some evidence of lateral wall cardiac ischemia and new Atrial fibrillation on today's EKG. Some mild change in her troponin, which is still normal, secondary to her CHF. Artifactually elevated CK index secondary to her low baseline CK. Qualifiers: Coronary Disease-Associated Artery/Lesion type: [place] artery [place] vs. transplanted heart: [place] heart Associated angina: without angina Qualified Code(s): I25.10 - Atherosclerotic heart disease of [place] coronary artery without angina pectoris (6) Dyslipidemia SNOMED Code(s): 365225487 Code(s): E78.5 - HYPERLIPIDEMIA, UNSPECIFIED Status: Chronic Priority: Medium Current Visit: Yes Annotation/Comment:: Lipid panel in the a.m. (7) Hypercalcemia SNOMED Code(s): 87755459 Code(s): E83.52 - HYPERCALCEMIA Status: Acute Priority: Medium Current Visit: Yes Annotation/Comment:: Observe for now (8) Hyperuricemia SNOMED Code(s): 97716750 Code(s): E79.0 - HYPERURICEMIA W/O SIGNS OF INFLAM ARTHRIT AND TOPHACEOUS DIS Status: Chronic Priority: Medium Current Visit: Yes Annotation/ Comment:: No recent history of gout attacks. Her arthritis is otherwise stable. Continue to observe closely secondary to IV Lasix therapy. (9) Hypokalemia SNOMED Code(s): 05401244 Code(s): E87.6 - HYPOKALEMIA Status: Chronic Priority: Medium Current Visit: Yes Annotation/Comment:: Lactated Ringer's given as above. Oral potassium chloride supplementation with her IV Lasix. 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 Consider sliding scale depending on her clinical course. (11) Urinary tract infection SNOMED Code(s): 51262390 Code(s): N39.0 - URINARY TRACT INFECTION, SITE NOT SPECIFIED Status: Acute Priority: Medium Current Visit: Yes Annotation/Comment:: Possible UTI with urine specimen set up for culture and sensitivity. IV Rocephin and IV Flagyl therapy will be initiated secondary her abdominal pain as above. Qualifiers: Urinary tract infection type: acute cystitis Hematuria presence: without hematuria Qualified Code(s): N30.00 - Acute cystitis without hematuria (12) Dehydration SNOMED Code(s): 30359613 Code(s): E86.0 - DEHYDRATION Status: Acute Priority: High Current Visit : Yes Onset Date: ~08/12/18 Annotation/Comment:: IV fluids as above. (13) Need for comfort care SNOMED Code(s): 980298009, 942268210 Code(s): TIH2365 - Status: Chronic Priority: Medium Current Visit: Yes Annotation/Comment:: Comfort/palliative care confirmed with the patient and her daughter. Hospital transfer okay, however. (14) D-dimer, elevated SNOMED Code(s): 818335133 Code(s): R79.89 - OTHER SPECIFIED ABNORMAL FINDINGS OF BLOOD CHEMISTRY Status: Acute Priority: High Current Visit: Yes Onset Date: 08/12/18 Annotation/Comment:: No Clinical evidence of DVT or PE. Note distant DVT as above. Venous Doppler studies to be conducted in the a.m. Consider CTA of the chest depending on her clinical course, however note renal insufficiency. Note subcutaneous Lovenox as above. - Problem List Review Problem List Initiated/Reviewed/Updated: Yes - My Orders Last 24 Hours: My Active Orders 08/12/18 16:30 CULTURE STREP A CONFIRMATION [RM] Stat STREP SCRN A RAPID W CULT CONF [RM] Stat 08/12/18 16:31 Peripheral IV Care [RC] . DIRECTED Abdomen Series w Chest 1V [CR] Stat OCCULT BLOOD DIAGNOSTIC [OP] Stat Sodium Chloride 0.9% [Saline Flush] 10 ml FLUSH ASDIRECTED PRN Obtain Past Medical Record [OM.PC] Urgent Peripheral IV Insertion Adult [OM.PC] Stat Resuscitation Status Stat 08/12/18 18:00 CULTURE URINE [RM] Stat 08/12/18 Breakfast Nothing Per Oral Diet [DIET] - Assessment/Plan Admission H&P: Please use this note as an admission H&P Last 24 Hours: My Active Orders 08/12/18 16:30 CULTURE STREP A CONFIRMATION [RM] Stat STREP SCRN A RAPID W CULT CONF [RM] Stat 08/12/18 16:31 Peripheral IV Care [RC] . DIRECTED Abdomen Series w Chest 1V [CR] Stat OCCULT BLOOD DIAGNOSTIC [OP] Stat Sodium Chloride 0.9% [Saline Flush] 10 ml FLUSH ASDIRECTED PRN Obtain Past Medical Record [OM.PC] Urgent Peripheral IV Insertion Adult [OM.PC] Stat Resuscitation Status Stat 08/12/18 18:00 CULTURE URINE [RM] Stat 08/12/18 Breakfast Nothing Per Oral Diet [DIET] Assessment:: As above Plan: As above. Extensive precautions were given to the patient and her daughter, who are in agreement with the treatment plan. Wesly Pagan M.D., [facility], assumes care in the a.m. The patient will require about 3-4 days of inpatient/acute care secondary to multiple health problems as above.
[2018-08-12 16:55] LABS: HEMOGLOBIN A1C 7.6 % (4.3-5.7)
[2018-08-12] MEDS: Sodium Chloride 0.9% 10 ML Syringe FLUSH PRN ×2 (17:03→20:38)
[2018-08-12] MEDS ORDERED: Metoclopramide 10 MG/2 ML SDV IVPUSH ONE (17:41)
[2018-08-12] MEDS ORDERED: Acetaminophen 325 MG Tab PO PRN (20:08)
[2018-08-12] MEDS ORDERED: Nitroglycerin 0.4 MG Tab.SL SL PRN (20:15)
[2018-08-12] MEDS: metroNIDAZOLE/Normal Saline 500 MG in Premix Bag 1 BAG IV SCH (20:35)
[2018-08-12] MEDS: Furosemide 40 MG/4 ML VIAL IVPUSH SCH ×2 (20:36→21:30)
[2018-08-12] MEDS: Enoxaparin 80 MG/0.8 ML Syringe SUBCUT SCH (20:37)
[2018-08-12] MEDS: atorvaSTATin 10 MG Tab PO SCH (20:38)
[2018-08-12] MEDS: Metoprolol Succinate 50 MG Tab.ER PO SCH (20:38)
[2018-08-12] MEDS: Potassium Chloride 20 MEQ Tab.ER PO SCH (20:38)
[2018-08-12] MEDS: Gabapentin 300 MG Cap PO SCH (20:38)
[2018-08-12] MEDS: cefTRIAXone 1 GM in Sodium Chloride 0.9% 100 ML IV SCH (21:44)
[2018-08-13] MEDS: Sodium Chloride 0.9% 10 ML Syringe FLUSH PRN ×9 (03:47→21:00)
[2018-08-13] MEDS: metroNIDAZOLE/Normal Saline 500 MG in Premix Bag 1 BAG IV SCH ×3 (03:47→19:58)
[2018-08-13] MEDS: Furosemide 40 MG/4 ML VIAL IVPUSH SCH ×2 (06:18→13:26)
[2018-08-13] MEDS: amLODIPine 5 MG Tab PO SCH (08:19)
[2018-08-13] MEDS: Gabapentin 300 MG Cap PO SCH ×2 (08:20→17:33)
[2018-08-13] MEDS: Potassium Chloride 20 MEQ Tab.ER PO SCH ×3 (08:20→17:33)
[2018-08-13] MEDS: Sertraline 50 MG Tab PO SCH (08:20)
[2018-08-13] MEDS: buPROPion 150 MG Tab.ER PO SCH (08:21)
[2018-08-13] MEDS: Metoprolol Succinate 50 MG Tab.ER PO SCH ×2 (08:21→17:47)
[2018-08-13] MEDS: cefTRIAXone 1 GM in Sodium Chloride 0.9% 100 ML IV SCH ×2 (09:52→21:00)
[2018-08-13] MEDS: Insulin Glarg,Human.Rec.Analog 100 UNIT/ML ML SUBCUT SCH (10:01)
[2018-08-13] MEDS: Insulin Lispro 100 Units/ML 3 ML Vial SUBCUT SCH ×3 (10:04→17:33)
--- NOTE | 2018-08-13 11:05 | PCM.PN ---
- General Info Date of Service: 08/13/18 - Review of Systems General: Reports: Weakness, Fatigue HEENT: Reports: Other (left eye bells palsy) Pulmonary: Reports: Shortness of Breath Cardiovascular: Reports: Dyspnea on Exertion. Denies: Chest Pain Gastrointestinal: Reports: Nausea (improving), Vomiting (improving) Genitourinary: Reports: No Symptoms Musculoskeletal: Reports: No Symptoms Skin: Reports: No Symptoms Neurological: Reports: No Symptoms Psychiatric: Reports: No Symptoms - Patient Data Vitals - Most Recent: Last Vital Signs Temp 97.3 F 08/13/18 04:00 Pulse 62 08/13/18 08:21 Resp 16 08/13/18 04:00 BP 119/60 08/13/18 08:21 Pulse Ox 94 L 08/13/18 04:00 Weight - Most Recent: 178 lb 3.2 oz I&O - Last 24 Hours: Intake & Output 08/12/18 08/13/18 08/13/18 22:59 06:59 14:59 Intake Total 100 Output Total 300 Balance -200 Lab Results Last 24 Hours: Laboratory Results - last 24 hr 08/12/18 08/12/18 08/12/18 Range/Units 15:55 15:55 15:55 WBC (4.0-10.2) K/uL RBC (3.77-5.09) M/uL Hgb (11.7-15.5) g/dL Hct (34.0-46.0) % MCV (84.0-98.0) fL MCH (28.2-33.3) pg MCHC (31.7-36.0) g/dL RDW (11.2-14.1) % Plt Count (150-350) K/uL Neut % (Auto) (45.0-80.0) % Lymph % (Auto) (10.0-50.0) % [place] % (Auto) (2.0-14.0) % Eos % (Auto) (0.0-5.0) % Baso % (Auto) (0.0-2.0) % Neut # (Auto) (1.40-7.00) K/uL Lymph # (Auto) (0.50-3.50) K/uL [place] # (Auto) (0.00-1.00) K/uL Eos # (Auto) (0.00-0.50) K/uL Baso # (Auto) (0.00-0.20) K/uL PT (9.5-12.0) SEC INR APTT (21.0-31.3) SEC D-Dimer, Quantitative (0-400) ng/mL Sodium Cancelled Potassium Cancelled Chloride Cancelled Carbon Dioxide Cancelled BUN Cancelled Creatinine Cancelled Est Cr Clr Drug Dosing Cancelled Estimated GFR (MDRD) Cancelled Glucose Cancelled POC Glucose (65-110) mg/dl Hemoglobin A1c (4.3-5.7) % Uric Acid 8.1 H (2.6-7.2) mg/dL Calcium Cancelled Magnesium 1.7 L (1.8-2.4) mg/dL Total Bilirubin Cancelled AST Cancelled ALT Cancelled Alkaline Phosphatase Cancelled Creatine Kinase 50 (26-308) U/L Creatine Kinase Index 3.8 H (0.0-2.5) % CK-MB (CK-2) 1.90 (0.00-3.60) ng/mL Troponin I 0.019 (0.000-0.056) ng/mL NT-Pro-B Natriuret Pep 3557 H (0-125) pg/mL Total Protein Cancelled Albumin Cancelled Triglycerides (30-150) mg/dL Cholesterol (100-200) mg/dL LDL Cholesterol, Calc (0-100) mg/dL HDL Cholesterol (40-60) mg/dL Amylase 36 (25-115) U/L Lipase 132 (73-393) U/L Specimen Type Urine Color Urine Appearance Urine pH (5.0-9.0) Ur Specific [place] (1.005-1.030) Urine Protein (NEGATIVE) mg/dL Urine Glucose (UA) (NEGATIVE) mg/dL Urine Ketones (NEGATIVE) mg/dL Urine Occult Blood (NEGATIVE) Urine Nitrite (NEGATIVE) Urine Bilirubin (NEGATIVE) Urine Urobilinogen (0.2-1.0) E.U./dL Ur Leukocyte Esterase (NEGATIVE) Urine RBC /HPF Urine WBC /HPF Ur Epithelial Cells /LPF Urine Bacteria (NONE TO FEW) /HPF Hyaline Casts (NEGATIVE) /LPF Ketones Negative 08/12/18 08/12/18 08/12/18 Range/Units 15:55 15:55 16:30 WBC (4.0-10.2) K/uL RBC (3.77-5.09) M/uL Hgb (11.7-15.5) g/dL Hct (34.0-46.0) % MCV (84.0-98.0) fL MCH (28.2-33.3) pg MCHC (31.7-36.0) g/dL RDW (11.2-14.1) % Plt Count (150-350) K/uL Neut % (Auto) (45.0-80.0) % Lymph % (Auto) (10.0-50.0) % [place] % (Auto) (2.0-14.0) % Eos % (Auto) (0.0-5.0) % Baso % (Auto) (0.0-2.0) % Neut # (Auto) (1.40-7.00) K/uL Lymph # (Auto) (0.50-3.50) K/uL [place] # (Auto) (0.00-1.00) K/uL Eos # (Auto) (0.00-0.50) K/uL Baso # (Auto) (0.00-0.20) K/uL PT 12.0 (9.5-12.0) SEC INR 1.1 APTT 24.8 (21.0-31.3) SEC D-Dimer, Quantitative 668 H (0-400) ng/mL Sodium Potassium Chloride Carbon Dioxide BUN Creatinine Est Cr Clr Drug Dosing Estimated GFR (MDRD) Glucose POC Glucose (65-110) mg/dl Hemoglobin A1c 7.6 H (4.3-5.7) % Uric Acid (2.6-7.2) mg/dL Calcium Magnesium (1.8-2.4) mg/dL Total Bilirubin AST ALT Alkaline Phosphatase Creatine Kinase (26-308) U/L Creatine Kinase Index (0.0-2.5) % CK-MB (CK-2) (0.00-3.60) ng/mL Troponin I (0.000-0.056) ng/mL NT-Pro-B Natriuret Pep (0-125) pg/mL Total Protein Albumin Triglycerides (30-150) mg/dL Cholesterol (100-200) mg/dL LDL Cholesterol, Calc (0-100) mg/dL HDL Cholesterol (40-60) mg/dL Amylase (25-115) U/L Lipase (73-393) U/L Specimen Type Urine Color Urine Appearance Urine pH (5.0-9.0) Ur Specific [place] (1.005-1.030) Urine Protein (NEGATIVE) mg/dL Urine Glucose (UA) (NEGATIVE) mg/dL Urine Ketones (NEGATIVE) mg/dL Urine Occult Blood (NEGATIVE) Urine Nitrite (NEGATIVE) Urine Bilirubin (NEGATIVE) Urine Urobilinogen (0.2-1.0) E.U./dL Ur Leukocyte Esterase (NEGATIVE) Urine RBC /HPF Urine WBC /HPF Ur Epithelial Cells /LPF Urine Bacteria (NONE TO FEW) /HPF Hyaline Casts (NEGATIVE) /LPF Ketones 08/12/18 08/12/18 08/13/18 Range/Units 18:00 21:49 07:05 WBC 8.2 (4.0-10.2) K/uL RBC 4.45 (3.77-5.09) M/uL Hgb 13.5 (11.7-15.5) g/dL Hct 41.1 (34.0-46.0) % MCV 92.4 (84.0-98.0) fL MCH 30.3 (28.2-33.3) pg MCHC 32.8 (31.7-36.0) g/dL RDW 14.2 H (11.2-14.1) % Plt Count 217 (150-350) K/uL Neut % (Auto) 73.9 (45.0-80.0) % Lymph % (Auto) 18.1 (10.0-50.0) % [place] % (Auto) 6.6 (2.0-14.0) % Eos % (Auto) 1.2 (0.0-5.0) % Baso % (Auto) 0.2 (0.0-2.0) % Neut # (Auto) 6.04 (1.40-7.00) K/uL Lymph # (Auto) 1.48 (0.50-3.50) K/uL [place] # (Auto) 0.54 (0.00-1.00) K/uL Eos # (Auto) 0.10 (0.00-0.50) K/uL Baso # (Auto) 0.02 (0.00-0.20) K/uL PT (9.5-12.0) SEC INR APTT (21.0-31.3) SEC D-Dimer, Quantitative (0-400) ng/mL Sodium Potassium Chloride Carbon Dioxide BUN Creatinine Est Cr Clr Drug Dosing Estimated GFR (MDRD) Glucose POC Glucose (65-110) mg/dl Hemoglobin A1c (4.3-5.7) % Uric Acid (2.6-7.2) mg/dL Calcium Magnesium (1.8-2.4) mg/dL Total Bilirubin AST ALT Alkaline Phosphatase Creatine Kinase 56 (26-308) U/L Creatine Kinase Index 4.1 H (0.0-2.5) % CK-MB (CK-2) 2.30 (0.00-3.60) ng/mL Troponin I 0.029 (0.000-0.056) ng/mL NT-Pro-B Natriuret Pep (0-125) pg/mL Total Protein Albumin Triglycerides (30-150) mg/dL Cholesterol (100-200) mg/dL LDL Cholesterol, Calc (0-100) mg/dL HDL Cholesterol (40-60) mg/dL Amylase (25-115) U/L Lipase (73-393) U/L Specimen Type Urinvoid Urine Color Dark yellow Urine Appearance Slightly cloudy Urine pH 5.5 (5.0-9.0) Ur Specific [place] 1.025 (1.005-1.030) Urine Protein 100 H (NEGATIVE) mg/dL Urine Glucose (UA) Negative (NEGATIVE) mg/dL Urine Ketones Trace H (NEGATIVE) mg/dL Urine Occult Blood Negative (NEGATIVE) Urine Nitrite Negative (NEGATIVE) Urine Bilirubin Small H (NEGATIVE) Urine Urobilinogen 1.0 (0.2-1.0) E.U./dL Ur Leukocyte Esterase Negative (NEGATIVE) Urine RBC 5-10 H /HPF Urine WBC 5-10 H /HPF Ur Epithelial Cells Moderate H /LPF Urine Bacteria Few (NONE TO FEW) /HPF Hyaline Casts Rare H (NEGATIVE) /LPF Ketones 08/13/18 08/13/18 08/13/18 Range/Units 07:05 07:05 07:41 WBC (4.0-10.2) K/uL RBC (3.77-5.09) M/uL Hgb (11.7-15.5) g/dL Hct (34.0-46.0) % MCV (84.0-98.0) fL MCH (28.2-33.3) pg MCHC (31.7-36.0) g/dL RDW (11.2-14.1) % Plt Count (150-350) K/uL Neut % (Auto) (45.0-80.0) % Lymph % (Auto) (10.0-50.0) % [place] % (Auto) (2.0-14.0) % Eos % (Auto) (0.0-5.0) % Baso % (Auto) (0.0-2.0) % Neut # (Auto) (1.40-7.00) K/uL Lymph # (Auto) (0.50-3.50) K/uL [place] # (Auto) (0.00-1.00) K/uL Eos # (Auto) (0.00-0.50) K/uL Baso # (Auto) (0.00-0.20) K/uL PT (9.5-12.0) SEC INR APTT (21.0-31.3) SEC D-Dimer, Quantitative 194 (0-400) ng/mL Sodium 141 Potassium 3.5 Chloride 102 Carbon Dioxide 28.1 BUN 24 H Creatinine 1.60 H Est Cr Clr Drug Dosing 29.09 Estimated GFR (MDRD) 31 Glucose 128 H POC Glucose 131 H (65-110) mg/dl Hemoglobin A1c (4.3-5.7) % Uric Acid (2.6-7.2) mg/dL Calcium 9.7 Magnesium (1.8-2.4) mg/dL Total Bilirubin 0.8 AST 28 ALT 19 Alkaline Phosphatase 89 Creatine Kinase 50 (26-308) U/L Creatine Kinase Index 4.0 H (0.0-2.5) % CK-MB (CK-2) 2.00 (0.00-3.60) ng/mL Troponin I 0.028 (0.000-0.056) ng/mL NT-Pro-B Natriuret Pep 3412 H (0-125) pg/mL Total Protein 6.8 Albumin 3.0 L Triglycerides 139 (30-150) mg/dL Cholesterol 191 (100-200) mg/dL LDL Cholesterol, Calc 116 H (0-100) mg/dL HDL Cholesterol 47 (40-60) mg/dL Amylase (25-115) U/L Lipase (73-393) U/L Specimen Type Urine Color Urine Appearance Urine pH (5.0-9.0) Ur Specific [place] (1.005-1.030) Urine Protein (NEGATIVE) mg/dL Urine Glucose (UA) (NEGATIVE) mg/dL Urine Ketones (NEGATIVE) mg/dL Urine Occult Blood (NEGATIVE) Urine Nitrite (NEGATIVE) Urine Bilirubin (NEGATIVE) Urine Urobilinogen (0.2-1.0) E.U./dL Ur Leukocyte Esterase (NEGATIVE) Urine RBC /HPF Urine WBC /HPF Ur Epithelial Cells /LPF Urine Bacteria (NONE TO FEW) /HPF Hyaline Casts (NEGATIVE) /LPF Ketones [facility] Results Last 24 Hours: Microbiology 08/13/18 10:12 Stool Occult Blood ([facility]ULO) - Final Stool / Feces NEGATIVE OCCULT BLOOD 08/12/18 16:30 Influenza Type A Antigen Screen - Final Nasal, Left NEGATIVE INFLUENZA A VIRUS AG Influenza Type B Antigen Screen - Final NEGATIVE INFLUENZA B VIRUS AG 08/12/18 16:30 Group A Streptococcus Rapid Screen - Final Throat NEGATIVE STREP A SCREEN Med Orders - Current: Current Medications Acetaminophen (Tylenol) 650 mg PO Q4H PRN PRN Reason: Pain Amlodipine Besylate (Norvasc) 10 mg PO DAILY [facility] Last Admin: 08/13/18 08:19 Dose: 10 mg Atorvastatin Calcium (Lipitor) 20 mg PO BEDTIME [facility] Last Admin: 08/12/18 20:38 Dose: 20 mg Bupropion HCl (Wellbutrin Xl) 150 mg PO DAILY [facility] Last Admin: 08/13/18 08:21 Dose: 150 mg Enoxaparin Sodium (Lovenox) 80 mg SUBCUT Q24H [facility] Last Admin: 08/12/18 20:37 Dose: 80 mg Fosinopril Sodium (Monopril) 40 mg PO DAILY [facility] Last Admin: 08/13/18 08:18 Dose: 40 mg Furosemide (Lasix) 40 mg IVPUSH Q8H [facility] Last Admin: 08/13/18 06:18 Dose: 40 mg Gabapentin (Neurontin) 300 mg PO BID [facility] Last Admin: 08/13/18 08:20 Dose: 300 mg Ceftriaxone Sodium 1 gm/ (Sodium Chloride) 100 mls @ 200 mls/hr IV Q12H [facility] Last Admin: 08/13/18 09:52 Dose: 200 mls/hr Metronidazole 500 mg/ Premix 100 mls @ 100 mls/hr IV Q8H [facility] Last Admin: 08/13/18 03:47 Dose: 100 mls/hr Insulin Glargine (Lantus) 17 unit SUBCUT DAILY [facility] Last Admin: 08/13/18 10:01 Dose: 17 units Insulin Human Lispro (Humalog) 7 unit SUBCUT TIDMEALS [facility] Last Admin: 08/13/18 10:04 Dose: 7 units Metoprolol Succinate (Toprol Xl) 50 mg PO BID [facility] Last Admin: 08/13/18 08:21 Dose: 50 mg Nitroglycerin (Nitrostat) 0.4 mg SL Q5M PRN PRN Reason: ANGINA Ondansetron HCl (Zofran) 4 mg IVPUSH Q4H PRN PRN Reason: Nausea/Vomiting Potassium Chloride (Klor-Con M20) 20 meq PO TIDMEALS [facility] Last Admin: 08/13/18 08:20 Dose: 20 meq Sertraline HCl (Zoloft) 150 mg PO DAILY [facility] Last Admin: 08/13/18 08:20 Dose: 150 mg Sodium Chloride (Saline Flush) 10 ml FLUSH ASDIRECTED PRN PRN Reason: Keep Vein Open Last Admin: 08/13/18 09:53 Dose: 10 ml Sodium Chloride (Saline Flush) 10 ml FLUSH Q12HR PRN PRN Reason: Keep Vein Open Last Admin: 08/13/18 06:18 Dose: 10 ml Temazepam (Restoril) 15 mg PO BEDTIME PRN PRN Reason: Insomnia Discontinued Medications Famotidine (Pepcid) 40 mg IVPUSH ONETIME ONE Stop: 08/12/18 16:32 Last Admin: 08/12/18 16:46 Dose: 40 mg Lactated Ringer's (Ringers, Lactated) 1,000 mls @ 999 mls/hr IV .BOLUS ONE Stop: 08/12/18 17:31 Last Admin: 08/12/18 16:45 Dose: 999 mls/hr Metoclopramide HCl (Reglan) 10 mg IVPUSH ONETIME ONE Stop: 08/12/18 17:42 Last Admin: 08/12/18 17:45 Dose: 10 mg Ondansetron HCl (Zofran) 4 mg IVPUSH ONETIME ONE Stop: 08/12/18 16:32 Last Admin: 08/12/18 16:46 Dose: 4 mg Pantoprazole Sodium (Protonix Iv) 40 mg IVPUSH ONETIME ONE Stop: 08/12/18 16:32 Last Admin: 08/12/18 16:46 Dose: 40 mg - Exam General: Alert, Oriented HEENT: Pupils Equal, Pupils Reactive, EOMI, Mucous Membr. Moist/[place] Neck: Supple Lungs: Clear to Auscultation, Normal Respiratory Effort Cardiovascular: Irregular Rhythm (A fib; no murmur HR 60-70's) GI/Abdominal Exam: Normal Bowel Sounds, Soft, Non-Tender, No Organomegaly, No Distention, No Abnormal Bruit, No Mass, Pelvis Stable (Female) Exam: Deferred Back Exam: Normal Inspection, Full Range of Motion Extremities: Normal Inspection, Normal Range of Motion, Non-Tender, No Pedal Edema, Normal Capillary Refill Neurological: No New Focal Deficit Psy/Mental Status: Alert, Normal Affect, Normal Mood - Problem List & Annotations (1) Atrial fibrillation SNOMED Code(s): 74949882 Code(s): I48.91 - UNSPECIFIED ATRIAL FIBRILLATION Status: Acute Priority : High Current Visit: Yes Onset Date: 08/12/18 Qualifiers: Atrial fibrillation type: paroxysmal Qualified Code(s): I48.0 - Paroxysmal atrial fibrillation Annotation/Comment:: Stable. Controlled rate. Discussed DNR DNI status with patient. Patient does not want any shocking. Explained to family what A fib is. Will continue to monitor. Telemetry on. (2) CHF (congestive heart failure) SNOMED Code(s): 90820446 Code(s): I50.9 - HEART FAILURE, UNSPECIFIED Status: Acute Priority: High Current Visit: Yes Onset Date: 08/12/18 Qualifiers: Heart failure type: combined systolic and diastolic Heart failure chronicity: acute on chronic Qualified Code(s): I50.43 - Acute on chronic combined systolic (congestive) and diastolic (congestive) heart failure Annotation/Comment:: Continue diuresis. Repeat Echocardiogram on an outpatient basis as above. (3) Urinary tract infection SNOMED Code(s): 85953120 Code(s): N39.0 - URINARY TRACT INFECTION, SITE NOT SPECIFIED Status: Acute Priority: Medium Current Visit: Yes Qualifiers: Urinary tract infection type: acute cystitis Hematuria presence: without hematuria Qualified Code(s): N30.00 - Acute cystitis without hematuria Annotation/Comment:: IV Rocephin and IV Flagyl therapy -waiting on culture. (4) IDDM (insulin dependent diabetes mellitus) SNOMED Code(s): 29694694 Code(s): E11.9 - TYPE 2 DIABETES MELLITUS WITHOUT COMPLICATIONS; Z79.4 - SHELTER (CURRENT) USE OF INSULIN Status: Chronic Priority: Medium Current Visit: Yes Annotation/Comment:: Will continue to monitor BS - Problem List Review Problem List Initiated/Reviewed/Updated: Yes - My Orders Last 24 Hours: My Active Orders 08/13/18 10:30 Ondansetron [Zofran] 4 mg IVPUSH Q4H PRN 08/13/18 Breakfast ADA Diabetic [[employer] Diet] [DIET]
[2018-08-13] MEDS: Ondansetron 4 MG/2 ML SDV IVPUSH PRN ×2 (13:39→20:04)
[2018-08-13] MEDS: atorvaSTATin 10 MG Tab PO SCH (19:58)
[2018-08-13] MEDS: Enoxaparin 80 MG/0.8 ML Syringe SUBCUT SCH (19:58)
--- NOTE | 2018-08-13 20:24 | PCM.SN ---
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 right lower extremities
[2018-08-13] MEDS: Temazepam 15 MG Cap PO PRN (21:00)
[2018-08-14] MEDS: Sodium Chloride 0.9% 10 ML Syringe FLUSH PRN ×3 (03:45→19:36)
[2018-08-14] MEDS: metroNIDAZOLE/Normal Saline 500 MG in Premix Bag 1 BAG IV SCH ×3 (03:45→19:37)
[2018-08-14] MEDS: amLODIPine 5 MG Tab PO SCH (07:11)
[2018-08-14] MEDS: Metoprolol Succinate 50 MG Tab.ER PO SCH ×2 (07:11→17:07)
[2018-08-14] MEDS: Potassium Chloride 20 MEQ Tab.ER PO SCH ×3 (07:13→17:04)
[2018-08-14] MEDS: Gabapentin 300 MG Cap PO SCH ×2 (07:14→17:04)
[2018-08-14] MEDS: Sertraline 50 MG Tab PO SCH (07:14)
[2018-08-14] MEDS: Ondansetron 4 MG/2 ML SDV IVPUSH PRN (07:15)
[2018-08-14] MEDS: buPROPion 150 MG Tab.ER PO SCH (07:15)
[2018-08-14] MEDS: Insulin Lispro 100 Units/ML 3 ML Vial SUBCUT SCH ×3 (07:15→17:04)
[2018-08-14] MEDS: Insulin Glarg,Human.Rec.Analog 100 UNIT/ML ML SUBCUT SCH (07:22)
[2018-08-14] MEDS: cefTRIAXone 1 GM in Sodium Chloride 0.9% 100 ML IV SCH ×2 (08:01→20:42)
--- NOTE | 2018-08-14 13:15 | PCM.PN ---
- General Info Date of Service: 08/14/18 - Review of Systems General: Reports: Weakness, Fatigue HEENT: Reports: No Symptoms Pulmonary: Denies: Shortness of Breath, Cough, Wheezing Cardiovascular: Denies: Chest Pain, Palpitations Gastrointestinal: Reports: Nausea (improving). Denies: Vomiting Genitourinary: Reports: No Symptoms Musculoskeletal: Reports: Leg Pain (weakness right leg ) Skin: Reports: No Symptoms Neurological: Reports: Pre-Existing Deficit (bells palsy), Other Psychiatric: Reports: No Symptoms - Patient Data Vitals - Most Recent: Last Vital Signs Temp 97.8 F 08/14/18 11:30 Pulse 52 L 08/14/18 11:30 Resp 16 08/14/18 11:30 BP 101/60 08/14/18 11:30 Pulse Ox 95 08/14/18 11:30 Weight - Most Recent: 181 lb 9.6 oz I&O - Last 24 Hours: Intake & Output 08/13/18 08/14/18 08/14/18 22:59 06:59 14:59 Intake Total 450 350 Output Total 150 Balance 300 350 Lab Results Last 24 Hours: Laboratory Results - last 24 hr 08/13/18 08/13/18 08/13/18 Range/Units 11:31 16:56 21:04 WBC (4.0-10.2) K/uL RBC (3.77-5.09) M/uL Hgb (11.7-15.5) g/dL Hct (34.0-46.0) % MCV (84.0-98.0) fL MCH (28.2-33.3) pg MCHC (31.7-36.0) g/dL RDW (11.2-14.1) % Plt Count (150-350) K/uL Neut % (Auto) (45.0-80.0) % Lymph % (Auto) (10.0-50.0) % [place] % (Auto) (2.0-14.0) % Eos % (Auto) (0.0-5.0) % Baso % (Auto) (0.0-2.0) % Neut # (Auto) (1.40-7.00) K/uL Lymph # (Auto) (0.50-3.50) K/uL [place] # (Auto) (0.00-1.00) K/uL Eos # (Auto) (0.00-0.50) K/uL Baso # (Auto) (0.00-0.20) K/uL Sodium (136-145) mmol/L Potassium (3.5-5.1) mmol/L Chloride (98-107) mmol/L Carbon Dioxide (21.0-32.0) mmol/L BUN (7-18) mg/dL Creatinine (0.51-1.17) mg/dL Est Cr Clr Drug Dosing mL/min Estimated GFR (MDRD) mL/min Glucose (74-106) mg/dL POC Glucose 127 H 145 H 113 H (65-110) mg/dl Calcium (8.5-10.1) mg/dL NT-Pro-B Natriuret Pep (0-125) pg/mL 08/14/18 08/14/18 08/14/18 Range/Units 07:01 07:05 07:05 WBC 8.8 (4.0-10.2) K/uL RBC 4.20 (3.77-5.09) M/uL Hgb 12.7 (11.7-15.5) g/dL Hct 39.7 (34.0-46.0) % MCV 94.5 (84.0-98.0) fL MCH 30.2 (28.2-33.3) pg MCHC 32.0 (31.7-36.0) g/dL RDW 14.5 H (11.2-14.1) % Plt Count 211 (150-350) K/uL Neut % (Auto) 73.1 (45.0-80.0) % Lymph % (Auto) 18.4 (10.0-50.0) % [place] % (Auto) 6.6 (2.0-14.0) % Eos % (Auto) 1.6 (0.0-5.0) % Baso % (Auto) 0.3 (0.0-2.0) % Neut # (Auto) 6.41 (1.40-7.00) K/uL Lymph # (Auto) 1.61 (0.50-3.50) K/uL [place] # (Auto) 0.58 (0.00-1.00) K/uL Eos # (Auto) 0.14 (0.00-0.50) K/uL Baso # (Auto) 0.03 (0.00-0.20) K/uL Sodium 142 (136-145) mmol/L Potassium 4.0 (3.5-5.1) mmol/L Chloride 105 (98-107) mmol/L Carbon Dioxide 26.8 (21.0-32.0) mmol/L BUN 29 H (7-18) mg/dL Creatinine 1.90 H (0.51-1.17) mg/dL Est Cr Clr Drug Dosing 24.43 mL/min Estimated GFR (MDRD) 26 mL/min Glucose 113 H (74-106) mg/dL POC Glucose 106 (65-110) mg/dl Calcium 9.6 (8.5-10.1) mg/dL NT-Pro-B Natriuret Pep 2863 H (0-125) pg/mL 08/14/18 Range/Units 11:17 WBC (4.0-10.2) K/uL RBC (3.77-5.09) M/uL Hgb (11.7-15.5) g/dL Hct (34.0-46.0) % MCV (84.0-98.0) fL MCH (28.2-33.3) pg MCHC (31.7-36.0) g/dL RDW (11.2-14.1) % Plt Count (150-350) K/uL Neut % (Auto) (45.0-80.0) % Lymph % (Auto) (10.0-50.0) % [place] % (Auto) (2.0-14.0) % Eos % (Auto) (0.0-5.0) % Baso % (Auto) (0.0-2.0) % Neut # (Auto) (1.40-7.00) K/uL Lymph # (Auto) (0.50-3.50) K/uL [place] # (Auto) (0.00-1.00) K/uL Eos # (Auto) (0.00-0.50) K/uL Baso # (Auto) (0.00-0.20) K/uL Sodium (136-145) mmol/L Potassium (3.5-5.1) mmol/L Chloride (98-107) mmol/L Carbon Dioxide (21.0-32.0) mmol/L BUN (7-18) mg/dL Creatinine (0.51-1.17) mg/dL Est Cr Clr Drug Dosing mL/min Estimated GFR (MDRD) mL/min Glucose (74-106) mg/dL POC Glucose 116 H (65-110) mg/dl Calcium (8.5-10.1) mg/dL NT-Pro-B Natriuret Pep (0-125) pg/mL [place] Results Last 24 Hours: Microbiology 08/12/18 18:00 Urine Culture - Final Urine, Clean Catch MIXED POSITIVE RENEE DAY 2 08/12/18 16:30 Quick Strep Confirmation Culture - Final Throat Group A Streptococcus Rapid Screen - Final NEGATIVE STREP A SCREEN 08/13/18 10:12 Stool Occult Blood (CAILIN) - Final Stool / Feces NEGATIVE OCCULT BLOOD Med Orders - Current: Current Medications Acetaminophen (Tylenol) 650 mg PO Q4H PRN PRN Reason: Pain Amlodipine Besylate (Norvasc) 10 mg PO DAILY [facility] Last Admin: 08/14/18 07:11 Dose: 10 mg Atorvastatin Calcium (Lipitor) 20 mg PO BEDTIME [facility] Last Admin: 08/13/18 19:58 Dose: 20 mg Bupropion HCl (Wellbutrin Xl) 150 mg PO DAILY [facility] Last Admin: 08/14/18 07:15 Dose: 150 mg Enoxaparin Sodium (Lovenox) 80 mg SUBCUT Q24H [facility] Last Admin: 08/13/18 19:58 Dose: 80 mg Fosinopril Sodium (Monopril) 40 mg PO DAILY [facility] Last Admin: 08/14/18 07:12 Dose: 40 mg Gabapentin (Neurontin) 300 mg PO BID [facility] Last Admin: 08/14/18 07:14 Dose: 300 mg Ceftriaxone Sodium 1 gm/ (Sodium Chloride) 100 mls @ 200 mls/hr IV Q12H [facility] Last Admin: 08/14/18 08:01 Dose: 200 mls/hr Metronidazole 500 mg/ Premix 100 mls @ 100 mls/hr IV Q8H [facility] Last Admin: 08/14/18 11:19 Dose: 100 mls/hr Insulin Glargine (Lantus) 17 unit SUBCUT DAILY [facility] Last Admin: 08/14/18 07:22 Dose: 17 units Insulin Human Lispro (Humalog) 7 unit SUBCUT TIDMEALS [facility] Last Admin: 08/14/18 11:20 Dose: 7 units Metoprolol Succinate (Toprol Xl) 50 mg PO BID [facility] Last Admin: 08/14/18 07:11 Dose: 50 mg Nitroglycerin (Nitrostat) 0.4 mg SL Q5M PRN PRN Reason: ANGINA Ondansetron HCl (Zofran) 4 mg IVPUSH Q4H PRN PRN Reason: Nausea/Vomiting Last Admin: 08/14/18 07:15 Dose: 4 mg Potassium Chloride (Klor-Con M20) 20 meq PO TIDMEALS [facility] Last Admin: 08/14/18 11:20 Dose: 20 meq Sertraline HCl (Zoloft) 150 mg PO DAILY [facility] Last Admin: 08/14/18 07:14 Dose: 150 mg Sodium Chloride (Saline Flush) 10 ml FLUSH ASDIRECTED PRN PRN Reason: Keep Vein Open Last Admin: 08/14/18 11:21 Dose: 10 ml Sodium Chloride (Saline Flush) 10 ml FLUSH Q12HR PRN PRN Reason: Keep Vein Open Last Admin: 08/14/18 03:45 Dose: 10 ml Temazepam (Restoril) 15 mg PO BEDTIME PRN PRN Reason: Insomnia Last Admin: 08/13/18 21:00 Dose: 15 mg Discontinued Medications Famotidine (Pepcid) 40 mg IVPUSH ONETIME ONE Stop: 08/12/18 16:32 Last Admin: 08/12/18 16:46 Dose: 40 mg Furosemide (Lasix) 40 mg IVPUSH Q8H [facility] Last Admin: 08/13/18 13:26 Dose: 40 mg Lactated Ringer's (Ringers, Lactated) 1,000 mls @ 999 mls/hr IV .BOLUS ONE Stop: 08/12/18 17:31 Last Admin: 08/12/18 16:45 Dose: 999 mls/hr Metoclopramide HCl (Reglan) 10 mg IVPUSH ONETIME ONE Stop: 08/12/18 17:42 Last Admin: 08/12/18 17:45 Dose: 10 mg Ondansetron HCl (Zofran) 4 mg IVPUSH ONETIME ONE Stop: 08/12/18 16:32 Last Admin: 08/12/18 16:46 Dose: 4 mg Pantoprazole Sodium (Protonix Iv) 40 mg IVPUSH ONETIME ONE Stop: 08/12/18 16:32 Last Admin: 08/12/18 16:46 Dose: 40 mg - Exam General: Alert, Oriented HEENT: Pupils Equal, Pupils Reactive, EOMI, Mucous Membr. Moist/[place] Neck: Supple Lungs: Clear to Auscultation, Normal Respiratory Effort Cardiovascular: Irregular Rhythm (a fib) GI/Abdominal Exam: Normal Bowel Sounds, Soft, Non-Tender, No Organomegaly, No Distention, No Abnormal Bruit, No Mass, Pelvis Stable (Female) Exam: Deferred Extremities: Leg Pain (right leg weakness) Skin: Warm, Dry, Intact Neurological: No New Focal Deficit Psy/Mental Status: Alert, Normal Affect, Normal Mood - Problem List & Annotations (1) Atrial fibrillation SNOMED Code(s): 46157238 Code(s): I48.91 - UNSPECIFIED ATRIAL FIBRILLATION Status: Acute Priority : High Current Visit: Yes Onset Date: 08/12/18 Qualifiers: Atrial fibrillation type: paroxysmal Qualified Code(s): I48.0 - Paroxysmal atrial fibrillation Annotation/Comment:: Stable. Controlled rate. Discussed DNR DNI status with patient. Patient does not want any shocking. Explained to family what A fib is. Will continue to monitor. Telemetry on. 08-14-18 no changes (2) CHF (congestive heart failure) SNOMED Code(s): 08948990 Code(s): I50.9 - HEART FAILURE, UNSPECIFIED Status: Acute Priority: High Current Visit: Yes Onset Date: 08/12/18 Qualifiers: Heart failure type: combined systolic and diastolic Heart failure chronicity: acute on chronic Qualified Code(s): I50.43 - Acute on chronic combined systolic (congestive) and diastolic (congestive) heart failure Annotation/Comment:: Continue diuresis. Repeat Echocardiogram on an outpatient basis as above. Looking at admitting patient to [facility] status (3) Urinary tract infection SNOMED Code(s): 07907849 Code(s): N39.0 - URINARY TRACT INFECTION, SITE NOT SPECIFIED Status: Acute Priority: Medium Current Visit: Yes Qualifiers: Urinary tract infection type: acute cystitis Hematuria presence: without hematuria Qualified Code(s): N30.00 - Acute cystitis without hematuria Annotation/Comment:: IV Rocephin and IV Flagyl therapy (4) IDDM (insulin dependent diabetes mellitus) SNOMED Code(s): 55111519 Code(s): E11.9 - TYPE 2 DIABETES MELLITUS WITHOUT COMPLICATIONS; Z79.4 - ADDICTION THERAPIST (CURRENT) USE OF INSULIN Status: Chronic Priority: Medium Current Visit: Yes Annotation/Comment:: Will continue to monitor BS (5) Cerebrovascular accident (CVA) SNOMED Code(s): 995126181 Code(s): I63.9 - CEREBRAL INFARCTION, UNSPECIFIED Status: Acute Current Visit: Yes Qualifiers: CVA mechanism: unspecified Qualified Code(s): I63.9 - Cerebral infarction, unspecified Annotation/Comment:: Possible CTA, CT done- negative for hemorraghic stroke. Weakness of right leg noted. Consider lacunar stroke- will follow up with MRI on Saturday. - Problem List Review Problem List Initiated/Reviewed/Updated: Yes - My Orders Last 24 Hours: My Active Orders 08/13/18 13:50 Consult to Physical Therapy [PT Evaluation and Treatment] [CONS] Routine 08/13/18 13:51 Consult to Occupational Therapy [OT Evaluation and Treatment] [CONS] Routine 08/13/18 14:31 Head wo Cont [CT] Routine 08/13/18 15:31 Consult to Case Management/[employer]ship [CONS] Routine 08/13/18 17:09 C DIFFICILE TOXIN BY PCR [MREF] Routine 08/14/18 05:11 Chest 2V [CR] Routine 08/15/18 05:11 BASIC METABOLIC PANEL,BMP [CHEM] AM CBC WITH AUTO DIFF [HEME] AM 08/16/18 05:11 BASIC METABOLIC PANEL,BMP [CHEM] AM CBC WITH AUTO DIFF [HEME] AM
[2018-08-14] MEDS: atorvaSTATin 10 MG Tab PO SCH (19:34)
[2018-08-14] MEDS: Enoxaparin 80 MG/0.8 ML Syringe SUBCUT SCH (19:35)
[2018-08-14] MEDS: Temazepam 15 MG Cap PO PRN (21:18)
[2018-08-15] MEDS: metroNIDAZOLE/Normal Saline 500 MG in Premix Bag 1 BAG IV SCH ×2 (03:00→12:07)
[2018-08-15] MEDS: Sodium Chloride 0.9% 10 ML Syringe FLUSH PRN ×6 (03:00→12:08)
[2018-08-15] MEDS: Sertraline 50 MG Tab PO SCH (07:59)
[2018-08-15] MEDS: Gabapentin 300 MG Cap PO SCH (08:00)
[2018-08-15] MEDS: buPROPion 150 MG Tab.ER PO SCH (08:00)
[2018-08-15] MEDS: Ondansetron 4 MG/2 ML SDV IVPUSH PRN (08:02)
[2018-08-15] MEDS: Insulin Lispro 100 Units/ML 3 ML Vial SUBCUT SCH ×2 (08:07→13:23)
[2018-08-15] MEDS: Insulin Glarg,Human.Rec.Analog 100 UNIT/ML ML SUBCUT SCH (08:08)
[2018-08-15] MEDS: Potassium Chloride 20 MEQ Tab.ER PO SCH ×2 (08:10→12:07)
[2018-08-15] MEDS: cefTRIAXone 1 GM in Sodium Chloride 0.9% 100 ML IV SCH (08:10)
[2018-08-15] MEDS: Metoprolol Succinate 50 MG Tab.ER PO SCH (09:37)
[2018-08-15] MEDS: amLODIPine 5 MG Tab PO SCH (09:37)
[2018-08-15 13:56] VITALS: BP 121/69
--- NOTE | 2018-08-15 16:47 | PCM.DCSUM1 ---
Discharge Summary - Hospital Course Free Text/Narrative:: Patient is a 77-year-old female was admitted with shortness of breath UTI eventually was noted to have right leg weakness and a CT of the head was obtained to repeat to rule out CVA patient is stable and will transfer to swing bed for recovery of weakness of the right leg and arm Diagnosis: Stroke: No - Discharge Data Discharge Date: 08/15/18 Discharge Disposition: DC/Tfer W/I Hosp To [place] [id number] Condition: Good - Discharge Diagnosis/Problem(s) (1) Atrial fibrillation SNOMED Code(s): 32598827 ICD Code: I48.91 - UNSPECIFIED ATRIAL FIBRILLATION Status: Acute Priority : High Current Visit: Yes Onset Date: 08/12/18 Problem Details: Stable. Controlled rate. Discussed DNR DNI status with patient. Patient does not want any shocking. Explained to family what A fib is. Will continue to monitor. Telemetry on. 08-14-18 no changes Qualifiers: Atrial fibrillation type: paroxysmal Qualified Code(s): I48.0 - Paroxysmal atrial fibrillation (2) CHF (congestive heart failure) SNOMED Code(s): 09626894 ICD Code: I50.9 - HEART FAILURE, UNSPECIFIED Status: Acute Priority: High Current Visit: Yes Onset Date: 08/12/18 Problem Details: Continue diuresis. Repeat Echocardiogram on an outpatient basis as above. Looking at admitting patient to [facility] status Qualifiers: Heart failure type: combined systolic and diastolic Heart failure chronicity: acute on chronic Qualified Code(s): I50.43 - Acute on chronic combined systolic (congestive) and diastolic (congestive) heart failure (3) Urinary tract infection SNOMED Code(s): 48209650 ICD Code: N39.0 - URINARY TRACT INFECTION, SITE NOT SPECIFIED Status: Acute Priority: Medium Current Visit: Yes Problem Details: IV Rocephin and IV Flagyl therapy Qualifiers: Urinary tract infection type: acute cystitis Hematuria presence: without hematuria Qualified Code(s): N30.00 - Acute cystitis without hematuria (4) IDDM (insulin dependent diabetes mellitus) SNOMED Code(s): 02780842 ICD Code: E11.9 - TYPE 2 DIABETES MELLITUS WITHOUT COMPLICATIONS; Z79.4 - FPC (CURRENT) USE OF INSULIN Status: Chronic Priority: Medium Current Visit: Yes Problem Details: Will continue to monitor BS (5) Cerebrovascular accident (CVA) SNOMED Code(s): 895330529 ICD Code: I63.9 - CEREBRAL INFARCTION, UNSPECIFIED Status: Acute Current Visit: Yes Problem Details: Possible CTA, CT done- negative for hemorraghic stroke. Weakness of right leg noted. Consider lacunar stroke- will follow up with MRI on Saturday. Qualifiers: CVA mechanism: unspecified Qualified Code(s): I63.9 - Cerebral infarction, unspecified - Patient Summary/Data Consults: Consultations 08/13/18 13:50 Consult to Physical Therapy [PT Evaluation and Treatment] [CONS] Routine 08/13/18 13:51 Consult to Occupational Therapy [OT Evaluation and Treatment] [CONS] Routine 08/13/18 15:31 Consult to Case Management/Sales Architect [CONS] Routine 08/14/18 13:15 Consult to Case Management/Sales Architect [CONS] Routine - Patient Instructions Driving: Do Not Drive - Discharge Plan *PRESCRIPTION DRUG MONITORING PROGRAM REVIEWED*: Not Applicable *COPY OF PRESCRIPTION DRUG MONITORING REPORT IN PATIENT DOM: Not Applicable ( See plan) Home Medications: Home Meds Fosinopril [Monopril] 40 mg PO DAILY 10/20/14 [History] Insulin Glarg,Human.Rec.Analog [Lantus] 17 unit SUBCUT DAILY 10/20/14 [History] Nitroglycerin [Nitrostat] 0.4 mg SL Q5M 10/20/14 [History] Sertraline [Zoloft] 150 mg PO DAILY 10/20/14 [History] Gabapentin [Neurontin] 300 mg PO BID 11/01/14 [History] Insulin Aspart [Novolog] 7 unit SQ TIDMEALS 07/23/15 [History] Aspirin 81 mg PO DAILY 08/12/18 [History] Clopidogrel Bisulfate [Clopidogrel] 75 mg PO DAILY 08/12/18 [History] Metoprolol Succinate 50 mg PO DAILY 08/12/18 [History] amLODIPine Besylate [Amlodipine Besylate] 10 mg PO DAILY 08/12/18 [History] atorvaSTATin [Lipitor] 20 mg PO BEDTIME 08/12/18 [History] buPROPion [buPROPion XL] 150 mg PO DAILY 08/12/18 [History] Patient Handouts: Heart Failure, [id number] Forms: ED Department Discharge Referrals: Bertha Stacy MOHS SURGEON/GENERAL DERMATOLOGIST [Primary Care Provider] - - Discharge Summary/Plan Comment DC Time >30 min.: No - General Info Date of Service: 08/15/18 Functional Status: Reports: Tolerating Diet, Ambulating (With associated) - Review of Systems General: Reports: Weakness HEENT: Reports: Headaches Pulmonary: Reports: No Symptoms Cardiovascular: Reports: No Symptoms Gastrointestinal: Reports: No Symptoms Genitourinary: Reports: No Symptoms Musculoskeletal: Reports: Other (Right leg weakness) Skin: Reports: No Symptoms Neurological: Reports: No Symptoms Psychiatric: Reports: No Symptoms - Patient Data Vitals - Most Recent: Last Vital Signs Temp 97.5 F 08/15/18 12:00 Pulse 60 08/15/18 12:00 Resp 18 08/15/18 12:00 BP 121/69 08/15/18 12:00 Pulse Ox 98 08/15/18 12:00 Weight - Most Recent: 184 lb I&O - Last 24 hours: Intake & Output 08/15/18 08/15/18 08/15/18 06:59 14:59 22:59 Intake Total 550 586 Output Total 525 250 Balance 25 586 -250 Lab Results - Last 24 hrs: Laboratory Results - last 24 hr 08/14/18 08/14/18 08/15/18 Range/Units 17:02 20:46 06:50 WBC 9.3 (4.0-10.2) K/uL RBC 4.14 (3.77-5.09) M/uL Hgb 12.6 (11.7-15.5) g/dL Hct 39.3 (34.0-46.0) % MCV 94.9 (84.0-98.0) fL MCH 30.4 (28.2-33.3) pg MCHC 32.1 (31.7-36.0) g/dL RDW 14.2 H (11.2-14.1) % Plt Count 206 (150-350) K/uL Neut % (Auto) 70.4 (45.0-80.0) % Lymph % (Auto) 21.0 (10.0-50.0) % [place] % (Auto) 5.3 (2.0-14.0) % Eos % (Auto) 3.0 (0.0-5.0) % Baso % (Auto) 0.3 (0.0-2.0) % Neut # (Auto) 6.53 (1.40-7.00) K/uL Lymph # (Auto) 1.95 (0.50-3.50) K/uL [place] # (Auto) 0.49 (0.00-1.00) K/uL Eos # (Auto) 0.28 (0.00-0.50) K/uL Baso # (Auto) 0.03 (0.00-0.20) K/uL Sodium (136-145) mmol/L Potassium (3.5-5.1) mmol/L Chloride (98-107) mmol/L Carbon Dioxide (21.0-32.0) mmol/L BUN (7-18) mg/dL Creatinine (0.51-1.17) mg/dL Est Cr Clr Drug Dosing mL/min Estimated GFR (MDRD) mL/min Glucose (74-106) mg/dL POC Glucose 120 H 107 (65-110) mg/dl Calcium (8.5-10.1) mg/dL 08/15/18 08/15/18 08/15/18 Range/Units 06:50 07:15 10:56 WBC (4.0-10.2) K/uL RBC (3.77-5.09) M/uL Hgb (11.7-15.5) g/dL Hct (34.0-46.0) % MCV (84.0-98.0) fL MCH (28.2-33.3) pg MCHC (31.7-36.0) g/dL RDW (11.2-14.1) % Plt Count (150-350) K/uL Neut % (Auto) (45.0-80.0) % Lymph % (Auto) (10.0-50.0) % [place] % (Auto) (2.0-14.0) % Eos % (Auto) (0.0-5.0) % Baso % (Auto) (0.0-2.0) % Neut # (Auto) (1.40-7.00) K/uL Lymph # (Auto) (0.50-3.50) K/uL [place] # (Auto) (0.00-1.00) K/uL Eos # (Auto) (0.00-0.50) K/uL Baso # (Auto) (0.00-0.20) K/uL Sodium 140 (136-145) mmol/L Potassium 4.6 (3.5-5.1) mmol/L Chloride 106 (98-107) mmol/L Carbon Dioxide 26.3 (21.0-32.0) mmol/L BUN 25 H (7-18) mg/dL Creatinine 1.64 H (0.51-1.17) mg/dL Est Cr Clr Drug Dosing 28.30 mL/min Estimated GFR (MDRD) 30 mL/min Glucose 91 (74-106) mg/dL POC Glucose 88 78 (65-110) mg/dl Calcium 9.3 (8.5-10.1) mg/dL CAILIN Results - Last 24 hrs: Microbiology 08/13/18 10:12 Helicobacter pylori Antigen - Final Stool / Feces Med Orders - Current: Current Medications Acetaminophen (Tylenol) 650 mg PO Q4H PRN PRN Reason: Pain Last Admin: 08/15/18 02:58 Dose: 650 mg Amlodipine Besylate (Norvasc) 10 mg PO DAILY [facility] Last Admin: 08/15/18 09:37 Dose: Not Given Atorvastatin Calcium (Lipitor) 20 mg PO BEDTIME [facility] Last Admin: 08/14/18 19:34 Dose: 20 mg Bupropion HCl (Wellbutrin Xl) 150 mg PO DAILY [facility] Last Admin: 08/15/18 08:00 Dose: 150 mg Enoxaparin Sodium (Lovenox) 80 mg SUBCUT Q24H [facility] Last Admin: 08/14/18 19:35 Dose: 80 mg Fosinopril Sodium (Monopril) 40 mg PO DAILY [facility] Last Admin: 08/15/18 09:37 Dose: Not Given Gabapentin (Neurontin) 300 mg PO BID [facility] Last Admin: 08/15/18 08:00 Dose: 300 mg Ceftriaxone Sodium 1 gm/ (Sodium Chloride) 100 mls @ 200 mls/hr IV Q12H [facility] Last Admin: 08/15/18 08:10 Dose: 200 mls/hr Metronidazole 500 mg/ Premix 100 mls @ 100 mls/hr IV Q8H [facility] Last Admin: 08/15/18 12:07 Dose: 100 mls/hr Insulin Glargine (Lantus) 17 unit SUBCUT DAILY [facility] Last Admin: 08/15/18 08:08 Dose: 17 units Insulin Human Lispro (Humalog) 7 unit SUBCUT TIDMEALS [facility] Last Admin: 08/15/18 13:23 Dose: Not Given Metoprolol Succinate (Toprol Xl) 50 mg PO BID [facility] Last Admin: 08/15/18 09:37 Dose: Not Given Nitroglycerin (Nitrostat) 0.4 mg SL Q5M PRN PRN Reason: ANGINA Ondansetron HCl (Zofran) 4 mg IVPUSH Q4H PRN PRN Reason: Nausea/Vomiting Last Admin: 08/15/18 08:02 Dose: 4 mg Potassium Chloride (Klor-Con M20) 20 meq PO TIDMEALS [facility] Last Admin: 08/15/18 12:07 Dose: 20 meq Sertraline HCl (Zoloft) 150 mg PO DAILY [facility] Last Admin: 08/15/18 07:59 Dose: 150 mg Sodium Chloride (Saline Flush) 10 ml FLUSH ASDIRECTED PRN PRN Reason: Keep Vein Open Last Admin: 08/15/18 12:08 Dose: 10 ml Sodium Chloride (Saline Flush) 10 ml FLUSH Q12HR PRN PRN Reason: Keep Vein Open Last Admin: 08/14/18 03:45 Dose: 10 ml Temazepam (Restoril) 15 mg PO BEDTIME PRN PRN Reason: Insomnia Last Admin: 08/14/18 21:18 Dose: 15 mg Discontinued Medications Famotidine (Pepcid) 40 mg IVPUSH ONETIME ONE Stop: 08/12/18 16:32 Last Admin: 08/12/18 16:46 Dose: 40 mg Furosemide (Lasix) 40 mg IVPUSH Q8H [facility] Last Admin: 08/13/18 13:26 Dose: 40 mg Lactated Ringer's (Ringers, Lactated) 1,000 mls @ 999 mls/hr IV .BOLUS ONE Stop: 08/12/18 17:31 Last Admin: 08/12/18 16:45 Dose: 999 mls/hr Metoclopramide HCl (Reglan) 10 mg IVPUSH ONETIME ONE Stop: 08/12/18 17:42 Last Admin: 08/12/18 17:45 Dose: 10 mg Ondansetron HCl (Zofran) 4 mg IVPUSH ONETIME ONE Stop: 08/12/18 16:32 Last Admin: 08/12/18 16:46 Dose: 4 mg Pantoprazole Sodium (Protonix Iv) 40 mg IVPUSH ONETIME ONE Stop: 08/12/18 16:32 Last Admin: 08/12/18 16:46 Dose: 40 mg - Exam Quality Assessment: Reports: Supplemental Oxygen General: Reports: Alert, Oriented HEENT: Reports: Pupils Equal, Pupils Reactive, EOMI, Mucous Membr. Moist/[place] Neck: Reports: Supple Lungs: Reports: Clear to Auscultation, Normal Respiratory Effort Cardiovascular: Reports: Regular Rate, Regular Rhythm GI/Abdominal Exam: Normal Bowel Sounds, Soft, Non-Tender, No Organomegaly, No Distention, No Abnormal Bruit, No Mass, Pelvis Stable (Female) Exam: Normal Speculum Exam, Normal Bimanual Exam, Deferred Rectal (Female) Exam: Deferred Back Exam: Reports: Decreased Range of Motion Extremities: Other (Right leg weakness) Skin: Reports: Warm, Dry, Intact Neurological: Reports: No New Focal Deficit Psy/Mental Status: Reports: Alert, Normal Affect, Normal Mood
== END 2018-08-15 17:07 | disposition swing bed (61) | DRG 308 ==
LOC: LL.ED 16:21 → LL.MS 19:30
PROVIDERS: ADMIT Family Medicine; ATTEND Family Medicine
DX: I48.0 Paroxysmal atrial fibrillation (principal); I63.9 Cerebral infarction, unspecified; I50.43 Acute on chronic combined systolic (congestive) and diastolic (congestive) heart failure; N30.00 Acute cystitis without hematuria; G81.91 Hemiplegia, unspecified affecting right dominant side; I13.0 Hypertensive heart and chronic kidney disease with heart failure and stage 1 through stage 4 chronic kidney disease, or unspecified chronic kidney disease; J44.9 Chronic obstructive pulmonary disease, unspecified; M10.9 Gout, unspecified; E87.6 Hypokalemia; E86.0 Dehydration; E83.52 Hypercalcemia; R79.1 Abnormal coagulation profile; Z86.718 Personal history of other venous thrombosis and embolism; I25.10 Atherosclerotic heart disease of native coronary artery without angina pectoris; N18.3 Chronic kidney disease, stage 3 (moderate); Z95.5 Presence of coronary angioplasty implant and graft; E11.22 Type 2 diabetes mellitus with diabetic chronic kidney disease; E11.21 Type 2 diabetes mellitus with diabetic nephropathy; E11.42 Type 2 diabetes mellitus with diabetic polyneuropathy; Z79.4 Long term (current) use of insulin; Z66 Do not resuscitate; G89.29 Other chronic pain; F32.9 Major depressive disorder, single episode, unspecified; F41.9 Anxiety disorder, unspecified; K76.0 Fatty (change of) liver, not elsewhere classified; M54.9 Dorsalgia, unspecified; H35.30 Unspecified macular degeneration; H54.7 Unspecified visual loss; Z86.73 Personal history of transient ischemic attack (TIA), and cerebral infarction without residual deficits; E78.5 Hyperlipidemia, unspecified; F17.200 Nicotine dependence, unspecified, uncomplicated; E66.9 Obesity, unspecified; Z91.81 History of falling; G47.33 Obstructive sleep apnea (adult) (pediatric); K21.9 Gastro-esophageal reflux disease without esophagitis; I27.20 Pulmonary hypertension, unspecified; M19.90 Unspecified osteoarthritis, unspecified site; G51.0 Bell's palsy; I42.9 Cardiomyopathy, unspecified; I25.2 Old myocardial infarction; Z88.8 Allergy status to other drugs, medicaments and biological substances; Z79.02 Long term (current) use of antithrombotics/antiplatelets; Z79.82 Long term (current) use of aspirin; Z79.899 Other long term (current) drug therapy; I34.0 Nonrheumatic mitral (valve) insufficiency
CPT/HCPCS: 36415; 70450; 71046; 74022; 80048; 80053; 80061; 81001; 82009; 82150; 82272; 82550; 82553; 82962; 83036; 83605; 83690; 83735; 83880; 84484; 84550; 85025; 85379; 85610; 85730; 87081; 87086; 87338; 87430; 87493; 87804; 93005; 93970; 96365; 96375; 97116-GP; 97163-GP; 97165-GO; 97530-GP; 99213; 99213-GF; 99285; A9270-GY; C9113; J0696; J1650; J1815; J1815-GY; J1940; J2405; J2765; J3490; J7050; J7120

== ENCOUNTER 2018-08-15 10:33 | Inpatient (IN) | payer MEDICARE, BC ==
[2018-08-15] MEDS ORDERED: Ondansetron 4 MG/2 ML SDV IVPUSH PRN (17:14)
[2018-08-15] MEDS ORDERED: Nitroglycerin 0.4 MG Tab.SL SL PRN (17:14)
[2018-08-15] MEDS ORDERED: Sodium Chloride 0.9% 10 ML Syringe FLUSH PRN ×2 (17:14)
[2018-08-15] MEDS: Insulin Lispro 100 Units/ML 3 ML Vial SUBCUT SCH (18:01)
[2018-08-15] MEDS: Metoprolol Succinate 50 MG Tab.ER PO SCH (18:11)
[2018-08-15] MEDS: Gabapentin 300 MG Cap PO SCH (18:11)
[2018-08-15] MEDS: Potassium Chloride 20 MEQ Tab.ER PO SCH (18:11)
[2018-08-15] MEDS: metroNIDAZOLE/Normal Saline 500 MG in Premix Bag 1 BAG IV SCH (19:06)
[2018-08-15] MEDS: Sodium Chloride 0.9% 10 ML Syringe FLUSH PRN (19:06)
[2018-08-15] MEDS: atorvaSTATin 10 MG Tab PO SCH (19:12)
[2018-08-15] MEDS: Enoxaparin 80 MG/0.8 ML Syringe SUBCUT SCH (19:12)
[2018-08-15] MEDS: cefTRIAXone 1 GM in Sodium Chloride 0.9% 100 ML IV SCH (20:03)
[2018-08-15] MEDS: Temazepam 15 MG Cap PO PRN (20:42)
[2018-08-16] MEDS: Sodium Chloride 0.9% 10 ML Syringe FLUSH PRN ×4 (03:03→19:48)
[2018-08-16] MEDS: metroNIDAZOLE/Normal Saline 500 MG in Premix Bag 1 BAG IV SCH ×3 (03:03→19:48)
[2018-08-16] MEDS: Insulin Lispro 100 Units/ML 3 ML Vial SUBCUT SCH ×3 (07:21→17:21)
[2018-08-16] MEDS: amLODIPine 5 MG Tab PO SCH (07:22)
[2018-08-16] MEDS: Sertraline 50 MG Tab PO SCH (07:23)
[2018-08-16] MEDS: buPROPion 150 MG Tab.ER PO SCH (07:23)
[2018-08-16] MEDS: Metoprolol Succinate 50 MG Tab.ER PO SCH ×2 (07:23→17:20)
[2018-08-16] MEDS: Potassium Chloride 20 MEQ Tab.ER PO SCH ×3 (07:23→17:21)
[2018-08-16] MEDS: Gabapentin 300 MG Cap PO SCH ×2 (07:23→17:20)
[2018-08-16] MEDS: Insulin Glarg,Human.Rec.Analog 100 UNIT/ML ML SUBCUT SCH (07:25)
[2018-08-16] MEDS: cefTRIAXone 1 GM in Sodium Chloride 0.9% 100 ML IV SCH ×2 (09:53→20:54)
[2018-08-16] MEDS: atorvaSTATin 10 MG Tab PO SCH (19:45)
[2018-08-16] MEDS: Enoxaparin 80 MG/0.8 ML Syringe SUBCUT SCH (19:45)
[2018-08-16] MEDS: Temazepam 15 MG Cap PO PRN (21:24)
[2018-08-17] MEDS: metroNIDAZOLE/Normal Saline 500 MG in Premix Bag 1 BAG IV SCH (04:09)
[2018-08-17] MEDS: Sodium Chloride 0.9% 10 ML Syringe FLUSH PRN (04:09)
[2018-08-17] MEDS: Potassium Chloride 20 MEQ Tab.ER PO SCH ×3 (07:44→20:40)
[2018-08-17] MEDS: Acetaminophen 325 MG Tab PO PRN (07:45)
[2018-08-17] MEDS: Sertraline 50 MG Tab PO SCH (07:46)
[2018-08-17] MEDS: Metoprolol Succinate 50 MG Tab.ER PO SCH ×2 (07:46→20:39)
[2018-08-17] MEDS: buPROPion 150 MG Tab.ER PO SCH (07:46)
[2018-08-17] MEDS: amLODIPine 5 MG Tab PO SCH (07:47)
[2018-08-17] MEDS: Gabapentin 300 MG Cap PO SCH ×2 (07:49→20:41)
[2018-08-17] MEDS: Insulin Lispro 100 Units/ML 3 ML Vial SUBCUT SCH (08:41)
[2018-08-17] MEDS: Insulin Glarg,Human.Rec.Analog 100 UNIT/ML ML SUBCUT SCH (08:42)
[2018-08-17] MEDS: cefTRIAXone 1 GM in Sodium Chloride 0.9% 100 ML IV SCH (08:45)
[2018-08-17] MEDS: atorvaSTATin 10 MG Tab PO SCH (20:46)
[2018-08-17] MEDS: Enoxaparin 80 MG/0.8 ML Syringe SUBCUT SCH (20:49)
[2018-08-18] MEDS ORDERED: LORazepam 1 MG Tab PO ONE ×2 (07:00→10:00)
[2018-08-18] MEDS: Potassium Chloride 20 MEQ Tab.ER PO SCH ×3 (08:08→17:13)
[2018-08-18] MEDS: buPROPion 150 MG Tab.ER PO SCH (08:09)
[2018-08-18] MEDS: Sertraline 50 MG Tab PO SCH (08:09)
[2018-08-18] MEDS: Gabapentin 300 MG Cap PO SCH ×2 (08:11→17:13)
[2018-08-18] MEDS: amLODIPine 5 MG Tab PO SCH (08:14)
[2018-08-18] MEDS: Metoprolol Succinate 50 MG Tab.ER PO SCH ×2 (08:15→17:14)
[2018-08-18] MEDS: Insulin Glarg,Human.Rec.Analog 100 UNIT/ML ML SUBCUT SCH (08:17)
[2018-08-18] MEDS: atorvaSTATin 10 MG Tab PO SCH (21:05)
[2018-08-18] MEDS: Enoxaparin 80 MG/0.8 ML Syringe SUBCUT SCH (21:06)
[2018-08-19] MEDS: Potassium Chloride 20 MEQ Tab.ER PO SCH ×3 (07:20→17:04)
[2018-08-19] MEDS: Gabapentin 300 MG Cap PO SCH ×2 (07:21→17:04)
[2018-08-19] MEDS: amLODIPine 5 MG Tab PO SCH (07:21)
[2018-08-19] MEDS: Metoprolol Succinate 50 MG Tab.ER PO SCH ×2 (07:21→17:04)
[2018-08-19] MEDS: Insulin Glarg,Human.Rec.Analog 100 UNIT/ML ML SUBCUT SCH (07:22)
[2018-08-19] MEDS: Sertraline 50 MG Tab PO SCH (07:22)
[2018-08-19] MEDS: buPROPion 150 MG Tab.ER PO SCH (07:22)
[2018-08-19] MEDS: Temazepam 15 MG Cap PO PRN (20:20)
[2018-08-19] MEDS: atorvaSTATin 10 MG Tab PO SCH (20:20)
[2018-08-19] MEDS: Enoxaparin 80 MG/0.8 ML Syringe SUBCUT SCH (20:21)
[2018-08-20] MEDS: Acetaminophen 325 MG Tab PO PRN ×2 (05:28→20:48)
[2018-08-20] MEDS: Potassium Chloride 20 MEQ Tab.ER PO SCH ×3 (07:50→17:20)
[2018-08-20] MEDS: Gabapentin 300 MG Cap PO SCH ×2 (07:52→17:20)
[2018-08-20] MEDS: amLODIPine 5 MG Tab PO SCH (07:52)
[2018-08-20] MEDS: Metoprolol Succinate 50 MG Tab.ER PO SCH ×2 (07:53→17:22)
[2018-08-20] MEDS: Sertraline 50 MG Tab PO SCH (07:54)
[2018-08-20] MEDS: buPROPion 150 MG Tab.ER PO SCH (07:54)
[2018-08-20] MEDS: Insulin Glarg,Human.Rec.Analog 100 UNIT/ML ML SUBCUT SCH (07:57)
[2018-08-20] MEDS: atorvaSTATin 10 MG Tab PO SCH (20:48)
[2018-08-20] MEDS: Temazepam 15 MG Cap PO PRN (20:48)
[2018-08-20] MEDS: Enoxaparin 80 MG/0.8 ML Syringe SUBCUT SCH (20:48)
[2018-08-21] MEDS: Acetaminophen 325 MG Tab PO PRN ×2 (01:34→20:12)
[2018-08-21] MEDS: Menthol/Methyl Salicylate 85 GM Tube TOP PRN (01:34)
[2018-08-21] MEDS: Potassium Chloride 20 MEQ Tab.ER PO SCH ×2 (07:23→11:34)
[2018-08-21] MEDS: amLODIPine 5 MG Tab PO SCH (07:23)
[2018-08-21] MEDS: Gabapentin 300 MG Cap PO SCH ×2 (07:23→17:27)
[2018-08-21] MEDS: Metoprolol Succinate 50 MG Tab.ER PO SCH ×2 (07:23→17:29)
[2018-08-21] MEDS: Sertraline 50 MG Tab PO SCH (07:24)
[2018-08-21] MEDS: buPROPion 150 MG Tab.ER PO SCH (07:24)
[2018-08-21] MEDS: Insulin Glarg,Human.Rec.Analog 100 UNIT/ML ML SUBCUT SCH (07:25)
[2018-08-21] MEDS: atorvaSTATin 10 MG Tab PO SCH (20:12)
[2018-08-21] MEDS: Enoxaparin 80 MG/0.8 ML Syringe SUBCUT SCH (20:12)
[2018-08-21] MEDS: Temazepam 15 MG Cap PO PRN (20:12)
[2018-08-22] MEDS: Insulin Glarg,Human.Rec.Analog 100 UNIT/ML ML SUBCUT SCH (08:09)
[2018-08-22] MEDS: Metoprolol Succinate 50 MG Tab.ER PO SCH ×2 (08:14→17:29)
[2018-08-22] MEDS: amLODIPine 5 MG Tab PO SCH (08:14)
[2018-08-22] MEDS: Sertraline 50 MG Tab PO SCH (08:14)
[2018-08-22] MEDS: Gabapentin 300 MG Cap PO SCH ×2 (08:15→17:28)
[2018-08-22] MEDS: buPROPion 150 MG Tab.ER PO SCH (08:15)
[2018-08-22] MEDS: Menthol/Methyl Salicylate 85 GM Tube TOP PRN (08:15)
[2018-08-22] MEDS: Acetaminophen 325 MG Tab PO PRN ×2 (08:17→20:30)
[2018-08-22] MEDS: Temazepam 15 MG Cap PO PRN (20:30)
[2018-08-22] MEDS: atorvaSTATin 10 MG Tab PO SCH (20:30)
[2018-08-22] MEDS: Enoxaparin 80 MG/0.8 ML Syringe SUBCUT SCH (20:31)
[2018-08-23] MEDS: Gabapentin 300 MG Cap PO SCH ×2 (07:49→17:40)
[2018-08-23] MEDS: buPROPion 150 MG Tab.ER PO SCH (07:49)
[2018-08-23] MEDS: Sertraline 50 MG Tab PO SCH (07:49)
[2018-08-23] MEDS: amLODIPine 5 MG Tab PO SCH (07:51)
[2018-08-23] MEDS: Metoprolol Succinate 50 MG Tab.ER PO SCH ×2 (07:52→17:45)
[2018-08-23] MEDS: Insulin Glarg,Human.Rec.Analog 100 UNIT/ML ML SUBCUT SCH (07:52)
[2018-08-23] MEDS: atorvaSTATin 10 MG Tab PO SCH (19:59)
[2018-08-23] MEDS: Acetaminophen 325 MG Tab PO PRN (19:59)
[2018-08-23] MEDS: Enoxaparin 80 MG/0.8 ML Syringe SUBCUT SCH (20:00)
[2018-08-23] MEDS: Temazepam 15 MG Cap PO PRN (20:00)
[2018-08-24] MEDS: Insulin Glarg,Human.Rec.Analog 100 UNIT/ML ML SUBCUT SCH (07:51)
[2018-08-24] MEDS: amLODIPine 5 MG Tab PO SCH (07:54)
[2018-08-24] MEDS: buPROPion 150 MG Tab.ER PO SCH (07:54)
[2018-08-24] MEDS: Acetaminophen 325 MG Tab PO PRN ×2 (07:55→19:29)
[2018-08-24] MEDS: Sertraline 50 MG Tab PO SCH (07:55)
[2018-08-24] MEDS: Gabapentin 300 MG Cap PO SCH ×2 (07:55→17:26)
[2018-08-24] MEDS: Menthol/Methyl Salicylate 85 GM Tube TOP PRN (07:59)
[2018-08-24] MEDS: Metoprolol Succinate 50 MG Tab.ER PO SCH ×2 (10:31→18:42)
[2018-08-24] MEDS: atorvaSTATin 10 MG Tab PO SCH (19:29)
[2018-08-24] MEDS: Enoxaparin 80 MG/0.8 ML Syringe SUBCUT SCH (19:30)
[2018-08-24] MEDS: Temazepam 15 MG Cap PO PRN (19:30)
[2018-08-25] MEDS: Gabapentin 300 MG Cap PO SCH ×2 (07:59→17:13)
[2018-08-25] MEDS: Sertraline 50 MG Tab PO SCH (07:59)
[2018-08-25] MEDS: Insulin Glarg,Human.Rec.Analog 100 UNIT/ML ML SUBCUT SCH (07:59)
[2018-08-25] MEDS: amLODIPine 5 MG Tab PO SCH (08:00)
[2018-08-25] MEDS: Metoprolol Succinate 50 MG Tab.ER PO SCH ×2 (08:00→17:14)
[2018-08-25] MEDS: buPROPion 150 MG Tab.ER PO SCH (08:00)
[2018-08-25] MEDS: Acetaminophen 325 MG Tab PO PRN ×2 (08:18→19:47)
[2018-08-25] MEDS: Menthol/Methyl Salicylate 85 GM Tube TOP PRN (08:19)
[2018-08-25] MEDS: Temazepam 15 MG Cap PO PRN (19:46)
[2018-08-25] MEDS: atorvaSTATin 10 MG Tab PO SCH (19:46)
[2018-08-25] MEDS: Enoxaparin 80 MG/0.8 ML Syringe SUBCUT SCH (19:47)
[2018-08-26] MEDS: amLODIPine 5 MG Tab PO SCH (08:00)
[2018-08-26] MEDS: buPROPion 150 MG Tab.ER PO SCH (08:00)
[2018-08-26] MEDS: Metoprolol Succinate 50 MG Tab.ER PO SCH ×2 (08:01→17:39)
[2018-08-26] MEDS: Gabapentin 300 MG Cap PO SCH ×2 (08:01→17:15)
[2018-08-26] MEDS: Sertraline 50 MG Tab PO SCH (08:01)
[2018-08-26] MEDS: Insulin Glarg,Human.Rec.Analog 100 UNIT/ML ML SUBCUT SCH (09:36)
[2018-08-26] MEDS: Apixaban 5 MG Tab PO SCH (17:15)
[2018-08-26] MEDS: atorvaSTATin 10 MG Tab PO SCH (20:23)
[2018-08-26] MEDS: Acetaminophen 325 MG Tab PO PRN (20:23)
[2018-08-26] MEDS: Temazepam 15 MG Cap PO PRN (20:23)
[2018-08-27] MEDS: amLODIPine 5 MG Tab PO SCH (08:48)
[2018-08-27] MEDS: buPROPion 150 MG Tab.ER PO SCH (08:49)
[2018-08-27] MEDS: Sertraline 50 MG Tab PO SCH (08:49)
[2018-08-27] MEDS: Apixaban 5 MG Tab PO SCH ×2 (08:49→17:01)
[2018-08-27] MEDS: Gabapentin 300 MG Cap PO SCH ×2 (08:50→17:01)
[2018-08-27] MEDS: Insulin Glarg,Human.Rec.Analog 100 UNIT/ML ML SUBCUT SCH (08:50)
[2018-08-27] MEDS: Metoprolol Succinate 50 MG Tab.ER PO SCH (09:15)
[2018-08-27] MEDS: atorvaSTATin 10 MG Tab PO SCH (20:13)
[2018-08-27] MEDS: Acetaminophen 325 MG Tab PO PRN (20:13)
[2018-08-27] MEDS: Temazepam 15 MG Cap PO PRN (20:13)
[2018-08-28] MEDS: Sertraline 50 MG Tab PO SCH (07:47)
[2018-08-28] MEDS: buPROPion 150 MG Tab.ER PO SCH (07:48)
[2018-08-28] MEDS: Apixaban 5 MG Tab PO SCH ×2 (07:48→17:23)
[2018-08-28] MEDS: Gabapentin 300 MG Cap PO SCH ×2 (07:48→17:23)
[2018-08-28] MEDS: amLODIPine 5 MG Tab PO SCH (07:49)
[2018-08-28] MEDS: Insulin Glarg,Human.Rec.Analog 100 UNIT/ML ML SUBCUT SCH (07:52)
[2018-08-28] MEDS: Acetaminophen 325 MG Tab PO PRN (07:55)
[2018-08-28] MEDS: atorvaSTATin 10 MG Tab PO SCH (21:38)
[2018-08-29] MEDS: Sertraline 50 MG Tab PO SCH (08:02)
[2018-08-29] MEDS: buPROPion 150 MG Tab.ER PO SCH (08:02)
[2018-08-29] MEDS: amLODIPine 5 MG Tab PO SCH (08:03)
[2018-08-29] MEDS: Gabapentin 300 MG Cap PO SCH ×2 (08:03→17:18)
[2018-08-29] MEDS: Acetaminophen 325 MG Tab PO PRN ×2 (08:04→19:38)
[2018-08-29] MEDS: Apixaban 5 MG Tab PO SCH ×2 (08:04→17:19)
[2018-08-29] MEDS: Insulin Glarg,Human.Rec.Analog 100 UNIT/ML ML SUBCUT SCH (08:05)
[2018-08-29] MEDS: atorvaSTATin 10 MG Tab PO SCH (19:35)
[2018-08-30] MEDS: buPROPion 150 MG Tab.ER PO SCH (07:36)
[2018-08-30] MEDS: Apixaban 5 MG Tab PO SCH ×2 (07:36→17:04)
[2018-08-30] MEDS: Sertraline 50 MG Tab PO SCH (07:36)
[2018-08-30] MEDS: Gabapentin 300 MG Cap PO SCH ×2 (07:37→17:04)
[2018-08-30] MEDS: amLODIPine 5 MG Tab PO SCH (07:37)
[2018-08-30] MEDS: Insulin Glarg,Human.Rec.Analog 100 UNIT/ML ML SUBCUT SCH (07:39)
[2018-08-30] MEDS: atorvaSTATin 10 MG Tab PO SCH (19:43)
[2018-08-31] MEDS: Gabapentin 300 MG Cap PO SCH ×2 (07:29→17:33)
[2018-08-31] MEDS: buPROPion 150 MG Tab.ER PO SCH (07:29)
[2018-08-31] MEDS: Sertraline 50 MG Tab PO SCH (07:29)
[2018-08-31] MEDS: Apixaban 5 MG Tab PO SCH ×2 (07:29→17:33)
[2018-08-31] MEDS: amLODIPine 5 MG Tab PO SCH (07:30)
[2018-08-31] MEDS: Insulin Glarg,Human.Rec.Analog 100 UNIT/ML ML SUBCUT SCH (07:32)
[2018-08-31] MEDS: atorvaSTATin 10 MG Tab PO SCH (19:44)
[2018-09-01] MEDS: Acetaminophen 325 MG Tab PO PRN ×4 (05:04→20:03)
[2018-09-01] MEDS: Sertraline 50 MG Tab PO SCH (07:29)
[2018-09-01] MEDS: amLODIPine 5 MG Tab PO SCH (07:30)
[2018-09-01] MEDS: Gabapentin 300 MG Cap PO SCH ×2 (07:30→17:18)
[2018-09-01] MEDS: Apixaban 5 MG Tab PO SCH ×2 (07:30→17:17)
[2018-09-01] MEDS: Insulin Glarg,Human.Rec.Analog 100 UNIT/ML ML SUBCUT SCH (07:31)
[2018-09-01] MEDS: buPROPion 150 MG Tab.ER PO SCH (07:31)
[2018-09-01] MEDS: traMADol 50 MG Tab PO PRN ×3 (08:09→20:03)
[2018-09-01] MEDS ORDERED: Ondansetron 4 MG Tab.DIS PO PRN (18:00)
[2018-09-01] MEDS: atorvaSTATin 10 MG Tab PO SCH (20:02)
[2018-09-01] MEDS: Temazepam 15 MG Cap PO PRN (20:03)
[2018-09-02] MEDS: Acetaminophen 325 MG Tab PO PRN ×2 (02:11→07:52)
[2018-09-02] MEDS: Apixaban 5 MG Tab PO SCH ×2 (07:50→17:03)
[2018-09-02] MEDS: Gabapentin 300 MG Cap PO SCH ×2 (07:51→17:03)
[2018-09-02] MEDS: amLODIPine 5 MG Tab PO SCH (07:52)
[2018-09-02] MEDS: Sertraline 50 MG Tab PO SCH (07:52)
[2018-09-02] MEDS: buPROPion 150 MG Tab.ER PO SCH (07:52)
[2018-09-02] MEDS: Insulin Glarg,Human.Rec.Analog 100 UNIT/ML ML SUBCUT SCH (07:53)
[2018-09-02] MEDS: traMADol 50 MG Tab PO PRN ×2 (07:53→17:03)
[2018-09-02] MEDS ORDERED: methylPREDNISolone Acetate 80 MG/ML SDV IM ONE (12:00)
[2018-09-02] MEDS: oxyCODONE 5 MG Tab PO PRN ×2 (12:11→20:29)
[2018-09-02] MEDS: atorvaSTATin 10 MG Tab PO SCH (20:29)
[2018-09-02] MEDS: Temazepam 15 MG Cap PO PRN (20:29)
[2018-09-03] MEDS: traMADol 50 MG Tab PO PRN ×3 (04:16→17:12)
[2018-09-03] MEDS: amLODIPine 5 MG Tab PO SCH (07:50)
[2018-09-03] MEDS: buPROPion 150 MG Tab.ER PO SCH (07:50)
[2018-09-03] MEDS: Menthol/Methyl Salicylate 85 GM Tube TOP PRN (07:50)
[2018-09-03] MEDS: Sertraline 50 MG Tab PO SCH (07:52)
[2018-09-03] MEDS: Gabapentin 300 MG Cap PO SCH ×2 (07:52→17:09)
[2018-09-03] MEDS: oxyCODONE 5 MG Tab PO PRN ×2 (07:53→14:17)
[2018-09-03] MEDS: Apixaban 5 MG Tab PO SCH ×2 (07:53→17:09)
[2018-09-03] MEDS: Insulin Glarg,Human.Rec.Analog 100 UNIT/ML ML SUBCUT SCH (07:56)
[2018-09-03] MEDS: atorvaSTATin 10 MG Tab PO SCH (20:13)
[2018-09-03] MEDS: Temazepam 15 MG Cap PO PRN (20:13)
[2018-09-04] MEDS: buPROPion 150 MG Tab.ER PO SCH (07:42)
[2018-09-04] MEDS: Apixaban 5 MG Tab PO SCH ×2 (07:44→17:14)
[2018-09-04] MEDS: Sertraline 50 MG Tab PO SCH (07:44)
[2018-09-04] MEDS: Gabapentin 300 MG Cap PO SCH ×2 (07:45→17:14)
[2018-09-04] MEDS: Acetaminophen 325 MG Tab PO PRN (07:46)
[2018-09-04] MEDS: amLODIPine 5 MG Tab PO SCH (07:46)
[2018-09-04] MEDS: Insulin Glarg,Human.Rec.Analog 100 UNIT/ML ML SUBCUT SCH (07:48)
[2018-09-04] MEDS: atorvaSTATin 10 MG Tab PO SCH (19:17)
[2018-09-05] MEDS: Gabapentin 300 MG Cap PO SCH ×2 (08:15→17:25)
[2018-09-05] MEDS: Apixaban 5 MG Tab PO SCH ×2 (08:15→17:25)
[2018-09-05] MEDS: Sertraline 50 MG Tab PO SCH (08:16)
[2018-09-05] MEDS: Insulin Glarg,Human.Rec.Analog 100 UNIT/ML ML SUBCUT SCH (08:16)
[2018-09-05] MEDS: buPROPion 150 MG Tab.ER PO SCH (08:16)
[2018-09-05] MEDS: amLODIPine 5 MG Tab PO SCH (08:16)
[2018-09-05] MEDS: atorvaSTATin 10 MG Tab PO SCH (20:02)
[2018-09-05] MEDS: Temazepam 15 MG Cap PO PRN (20:41)
[2018-09-06] MEDS: Apixaban 5 MG Tab PO SCH ×2 (08:04→17:25)
[2018-09-06] MEDS: amLODIPine 5 MG Tab PO SCH (08:08)
[2018-09-06] MEDS: Gabapentin 300 MG Cap PO SCH ×2 (08:08→17:25)
[2018-09-06] MEDS: buPROPion 150 MG Tab.ER PO SCH (08:09)
[2018-09-06] MEDS: Sertraline 50 MG Tab PO SCH (08:09)
[2018-09-06] MEDS: Insulin Glarg,Human.Rec.Analog 100 UNIT/ML ML SUBCUT SCH (08:20)
[2018-09-06] MEDS: atorvaSTATin 10 MG Tab PO SCH (19:42)
[2018-09-06] MEDS: Acetaminophen 325 MG Tab PO PRN (19:43)
[2018-09-06] MEDS: Temazepam 15 MG Cap PO PRN (19:44)
[2018-09-07] MEDS: Insulin Glarg,Human.Rec.Analog 100 UNIT/ML ML SUBCUT SCH (07:51)
[2018-09-07] MEDS: Apixaban 5 MG Tab PO SCH ×2 (07:52→17:18)
[2018-09-07] MEDS: Gabapentin 300 MG Cap PO SCH ×2 (07:54→17:17)
[2018-09-07] MEDS: buPROPion 150 MG Tab.ER PO SCH (07:55)
[2018-09-07] MEDS: amLODIPine 5 MG Tab PO SCH (07:55)
[2018-09-07] MEDS: Sertraline 50 MG Tab PO SCH (07:56)
[2018-09-07] MEDS: atorvaSTATin 10 MG Tab PO SCH (19:23)
[2018-09-07] MEDS: Acetaminophen 325 MG Tab PO PRN (21:01)
[2018-09-07] MEDS: Temazepam 15 MG Cap PO PRN (21:02)
[2018-09-08] MEDS: Apixaban 5 MG Tab PO SCH ×2 (07:36→17:42)
[2018-09-08] MEDS: Insulin Glarg,Human.Rec.Analog 100 UNIT/ML ML SUBCUT SCH (07:36)
[2018-09-08] MEDS: amLODIPine 5 MG Tab PO SCH (07:38)
[2018-09-08] MEDS: Gabapentin 300 MG Cap PO SCH ×2 (07:38→17:41)
[2018-09-08] MEDS: Sertraline 50 MG Tab PO SCH (07:41)
[2018-09-08] MEDS: buPROPion 150 MG Tab.ER PO SCH (07:41)
[2018-09-08] MEDS: atorvaSTATin 10 MG Tab PO SCH (19:20)
[2018-09-09] MEDS: Insulin Glarg,Human.Rec.Analog 100 UNIT/ML ML SUBCUT SCH (08:08)
[2018-09-09] MEDS: Apixaban 5 MG Tab PO SCH ×2 (08:09→17:36)
[2018-09-09] MEDS: Gabapentin 300 MG Cap PO SCH ×2 (08:11→17:37)
[2018-09-09] MEDS: buPROPion 150 MG Tab.ER PO SCH (08:12)
[2018-09-09] MEDS: amLODIPine 5 MG Tab PO SCH (08:12)
[2018-09-09] MEDS: Sertraline 50 MG Tab PO SCH (08:13)
[2018-09-09] MEDS: atorvaSTATin 10 MG Tab PO SCH (19:11)
[2018-09-09] MEDS: Temazepam 15 MG Cap PO PRN (21:10)
[2018-09-10] MEDS: Insulin Glarg,Human.Rec.Analog 100 UNIT/ML ML SUBCUT SCH (07:34)
[2018-09-10] MEDS: amLODIPine 5 MG Tab PO SCH (07:38)
[2018-09-10] MEDS: Sertraline 50 MG Tab PO SCH (07:39)
[2018-09-10] MEDS: buPROPion 150 MG Tab.ER PO SCH (07:40)
[2018-09-10] MEDS: Gabapentin 300 MG Cap PO SCH ×2 (08:55→17:43)
[2018-09-10] MEDS: Apixaban 5 MG Tab PO SCH ×2 (08:55→17:43)
[2018-09-10] MEDS: atorvaSTATin 10 MG Tab PO SCH (19:37)
[2018-09-10] MEDS: Temazepam 15 MG Cap PO PRN (21:08)
[2018-09-11] MEDS: Apixaban 5 MG Tab PO SCH ×2 (08:32→17:22)
[2018-09-11] MEDS: Insulin Glarg,Human.Rec.Analog 100 UNIT/ML ML SUBCUT SCH (08:33)
[2018-09-11] MEDS: Gabapentin 300 MG Cap PO SCH ×2 (08:35→17:23)
[2018-09-11] MEDS: Sertraline 50 MG Tab PO SCH (08:36)
[2018-09-11] MEDS: amLODIPine 5 MG Tab PO SCH (08:36)
[2018-09-11] MEDS: buPROPion 150 MG Tab.ER PO SCH (08:38)
[2018-09-11] MEDS: atorvaSTATin 10 MG Tab PO SCH (19:02)
[2018-09-11] MEDS: Temazepam 15 MG Cap PO PRN (21:10)
[2018-09-12 08:31] VITALS: BP 135/63
[2018-09-12] MEDS: Apixaban 5 MG Tab PO SCH (09:09)
[2018-09-12] MEDS: Insulin Glarg,Human.Rec.Analog 100 UNIT/ML ML SUBCUT SCH (09:10)
[2018-09-12] MEDS: Gabapentin 300 MG Cap PO SCH (09:12)
[2018-09-12] MEDS: buPROPion 150 MG Tab.ER PO SCH (09:12)
[2018-09-12] MEDS: amLODIPine 5 MG Tab PO SCH (09:12)
[2018-09-12] MEDS: Sertraline 50 MG Tab PO SCH (09:13)
--- NOTE | 2018-09-12 12:12 | PCM.DCSUM1 ---
Discharge Summary - Hospital Course Free Text/Narrative:: Patient was admitted to [facility] for rehabilitation of right arm and leg weakness. She was admitted to the hospital for UTI and shortness of breath. During the course of time, she developed right arm and leg weakness. A CTA was completed to rule out stroke, which was negative. She was admitted to [facility] for rehab. She has been working with both PT and OT with improvements. During her [facility] stay she did have a 2 falls. One which resulted in injury to her back. The other fall was without injury. She states that she has no pain as of now from the fall. She is feeling really good. She feels her strength is back. She will be going home with Home Health, PT and OT services. Patient is ready for discharge. Diagnosis: Stroke: No - Discharge Data Discharge Date: 09/12/18 Discharge Disposition: Home, W Home Health Agency 06 Condition: Good - Patient Summary/Data Consults: Consultations 08/15/18 17:14 Consult to Case Management/Electric Scoop Operator [CONS] Routine Consult to Case Management/Electric Scoop Operator [CONS] Routine Consult to Occupational Therapy [OT Evaluation and Treatment] [CONS] Routine Consult to Physical Therapy [PT Evaluation and Treatment] [CONS] Routine - Patient Instructions Diet: Diabetic Diet Activity: As Tolerated Showering/Bathing: May Shower - Discharge Plan *PRESCRIPTION DRUG MONITORING PROGRAM REVIEWED*: Not Applicable *COPY OF PRESCRIPTION DRUG MONITORING REPORT IN PATIENT DOM: Not Applicable Prescriptions/Med Rec: amLODIPine Besylate [Amlodipine Besylate] 10 mg PO DAILY 30 Days #30 tablet atorvaSTATin [Lipitor] 20 mg PO BEDTIME 30 Days #30 tablet buPROPion [buPROPion XL] 150 mg PO DAILY 30 Days #30 tab.er Fosinopril [Monopril] 40 mg PO DAILY 30 Days #30 tablet Gabapentin [Neurontin] 300 mg PO BID 30 Days #60 capsule Insulin Glarg,Human.Rec.Analog [Lantus] 17 unit SUBCUT DAILY #5 pen Sertraline [Zoloft] 150 mg PO DAILY 30 Days #45 tablet Temazepam [Restoril] 15 mg PO BEDTIME PRN 30 Days #30 cap PRN Reason: Insomnia Home Medications: Home Meds Nitroglycerin [Nitrostat] 0.4 mg SL Q5M 10/20/14 [History] Aspirin 81 mg PO DAILY 08/12/18 [History] Acetaminophen [Tylenol] 650 mg PO Q4H PRN tablet 09/12/18 [Rx] Apixaban [Eliquis] 5 mg PO BID 30 Days #60 tablet 09/12/18 [Rx] Fosinopril [Monopril] 40 mg PO DAILY 30 Days #30 tablet 09/12/18 [Rx] Gabapentin [Neurontin] 300 mg PO BID 30 Days #60 capsule 09/12/18 [Rx] Insulin Glarg,Human.Rec.Analog [Lantus] 17 unit SUBCUT DAILY #5 pen 09/12/18 [Rx ] Menthol/Methyl Salicylate [Icy Hot] 1 gm TOP QID PRN tube 09/12/18 [Rx] Sertraline [Zoloft] 150 mg PO DAILY 30 Days #45 tablet 09/12/18 [Rx] Temazepam [Restoril] 15 mg PO BEDTIME PRN 30 Days #30 cap 09/12/18 [Rx] amLODIPine Besylate [Amlodipine Besylate] 10 mg PO DAILY 30 Days #30 tablet [Rx] atorvaSTATin [Lipitor] 20 mg PO BEDTIME 30 Days #30 tablet 09/12/18 [Rx] buPROPion [buPROPion XL] 150 mg PO DAILY 30 Days #30 tab.er 09/12/18 [Rx] Other Amb Orders: OT Evaluation and Treatment [CONS] Location: None Selected PT Evaluation and Treatment [CONS] Location: None Selected Oxygen Therapy Mode: Room Air - Discharge Summary/Plan Comment DC Time >30 min.: Yes - General Info Date of Service: 09/12/18 Admission Dx/Problem (Free Text: rehabilitation for weakness on right side Functional Status: Reports: Pain Controlled - Review of Systems General: Reports: No Symptoms HEENT: Reports: No Symptoms Pulmonary: Reports: No Symptoms Cardiovascular: Reports: No Symptoms Gastrointestinal: Reports: No Symptoms Genitourinary: Reports: No Symptoms Musculoskeletal: Reports: No Symptoms Skin: Reports: No Symptoms Neurological: Reports: No Symptoms Psychiatric: Reports: No Symptoms - Patient Data Vitals - Most Recent: Last Vital Signs Temp 97.6 F 09/12/18 08:00 Pulse 59 L 09/12/18 08:00 Resp 20 09/12/18 08:00 BP 135/63 09/12/18 09:12 Pulse Ox 98 09/12/18 08:00 Weight - Most Recent: 182 lb 3.2 oz I&O - Last 24 hours: Intake & Output 09/11/18 09/12/18 09/12/18 22:59 06:59 14:59 Intake Total 120 100 120 Balance 120 100 120 Lab Results - Last 24 hrs: Laboratory Results - last 24 hr 09/11/18 09/12/18 Range/Units 17:25 07:37 POC Glucose 131 H 103 (65-110) mg/dl Med Orders - Current: Current Medications Acetaminophen (Tylenol) 650 mg PO Q4H PRN PRN Reason: Pain Last Admin: 09/07/18 21:01 Dose: 650 mg Amlodipine Besylate (Norvasc) 10 mg PO DAILY [facility] Last Admin: 09/12/18 09:12 Dose: 10 mg Apixaban (Eliquis) 5 mg PO BID [facility] Last Admin: 09/12/18 09:09 Dose: 5 mg Atorvastatin Calcium (Lipitor) 20 mg PO BEDTIME [facility] Last Admin: 09/11/18 19:02 Dose: 20 mg Bupropion HCl (Wellbutrin Xl) 150 mg PO DAILY [facility] Last Admin: 09/12/18 09:12 Dose: 150 mg Fosinopril Sodium (Monopril) 40 mg PO DAILY [facility] Last Admin: 09/12/18 09:11 Dose: 40 mg Gabapentin (Neurontin) 300 mg PO BID [facility] Last Admin: 09/12/18 09:12 Dose: 300 mg Insulin Glargine (Lantus) 17 unit SUBCUT DAILY [facility] Last Admin: 09/12/18 09:10 Dose: 17 unit Methyl Salicylate (Icy Hot Cream) 1 gm TOP QID PRN PRN Reason: Pain (mild 1-3) Last Admin: 09/03/18 07:50 Dose: 1 applic Nitroglycerin (Nitrostat) 0.4 mg SL Q5M PRN PRN Reason: ANGINA Ondansetron HCl (Zofran Odt) 4 mg PO Q6H PRN PRN Reason: Nausea/Vomiting Last Admin: 09/01/18 17:40 Dose: 4 mg Oxycodone HCl (Oxycodone) 5 mg PO Q6H PRN PRN Reason: Pain Last Admin: 09/03/18 14:17 Dose: 5 mg Sertraline HCl (Zoloft) 150 mg PO DAILY [facility] Last Admin: 09/12/18 09:13 Dose: 150 mg Temazepam (Restoril) 15 mg PO BEDTIME PRN PRN Reason: Insomnia Last Admin: 09/11/18 21:10 Dose: 15 mg Tramadol HCl (Ultram) 50 mg PO Q6H PRN PRN Reason: Pain Last Admin: 09/03/18 17:12 Dose: 50 mg Discontinued Medications Enoxaparin Sodium (Lovenox) 80 mg SUBCUT Q24H [facility] Last Admin: 08/25/18 19:47 Dose: 80 mg Ceftriaxone Sodium 1 gm/ (Sodium Chloride) 100 mls @ 200 mls/hr IV Q12H [facility] Last Admin: 08/17/18 08:45 Dose: 200 mls/hr Metronidazole 500 mg/ Premix 100 mls @ 100 mls/hr IV Q8H [facility] Last Admin: 08/17/18 04:09 Dose: 100 mls/hr Insulin Human Lispro (Humalog) 7 unit SUBCUT TIDMEALS [facility] Last Admin: 08/17/18 08:41 Dose: Not Given Lorazepam (Ativan) 1 mg PO ONETIME ONE Stop: 08/18/18 07:01 Lorazepam (Ativan) 1 mg PO ONETIME ONE Stop: 08/18/18 10:01 Last Admin: 08/18/18 10:03 Dose: 1 mg Methylprednisolone Acetate (Depo-Medrol) 80 mg IM ONETIME ONE Stop: 09/02/18 12:01 Last Admin: 09/02/18 12:11 Dose: 80 mg Metoprolol Succinate (Toprol Xl) 50 mg PO BID [facility] Last Admin: 08/27/18 09:15 Dose: Not Given Ondansetron HCl (Zofran) 4 mg IVPUSH Q4H PRN PRN Reason: Nausea/Vomiting Last Admin: 08/17/18 20:48 Dose: 4 mg Potassium Chloride (Klor-Con M20) 20 meq PO TIDMEALS [facility] Last Admin: 08/21/18 11:34 Dose: 20 meq Sodium Chloride (Saline Flush) 10 ml FLUSH ASDIRECTED PRN PRN Reason: Keep Vein Open Last Admin: 08/17/18 04:09 Dose: 10 ml Sodium Chloride (Saline Flush) 10 ml FLUSH Q12HR PRN PRN Reason: Keep Vein Open Last Admin: 08/17/18 20:50 Dose: 10 ml Sodium Chloride (Saline Flush) 10 ml FLUSH ASDIRECTED PRN PRN Reason: Keep Vein Open - Exam General: Reports: Alert, Oriented, Cooperative HEENT: Reports: Pupils Equal, Pupils Reactive Neck: Reports: Supple Lungs: Reports: Clear to Auscultation, Normal Respiratory Effort Cardiovascular: Reports: Regular Rate, Regular Rhythm GI/Abdominal Exam: Normal Bowel Sounds, Soft, Non-Tender, No Distention (Female) Exam: Deferred Rectal (Female) Exam: Deferred Back Exam: Reports: Normal Inspection, Full Range of Motion Extremities: Normal Inspection, Normal Range of Motion, No Pedal Edema Skin: Reports: Warm, Dry, Intact Neurological: Reports: No New Focal Deficit Psy/Mental Status: Reports: Alert, Normal Affect, Normal Mood
== END 2018-09-12 14:05 | disposition home health service (06) | DRG 947 ==
LOC: LL.MS 17:12 → LL.SWG 09-05 16:13
PROVIDERS: ADMIT Family Medicine; ATTEND Family Medicine
DX: R53.1 Weakness (principal); I50.43 Acute on chronic combined systolic (congestive) and diastolic (congestive) heart failure; N30.00 Acute cystitis without hematuria; Z66 Do not resuscitate; E11.9 Type 2 diabetes mellitus without complications; I48.0 Paroxysmal atrial fibrillation; R29.6 Repeated falls; Z79.82 Long term (current) use of aspirin; Z79.4 Long term (current) use of insulin; Z79.899 Other long term (current) drug therapy
CPT/HCPCS: 36415; 70544; 70551; 72110; 80048; 81001; 82962; 85025; 97032-GP; 97035-GO; 97110-GO; 97110-GP; 97116-GP; 97140-GO; 97161-GP; 97165-GO; 97530-GO; 97530-GP; A9270-GY; G0283-GP; J0696; J1040; J1650; J2405; J3490; J7050